=== PATIENT | female | born 1930 | race Caucasian/White ===

== ENCOUNTER 2016-12-23 11:22 | Inpatient (IN) | payer OTHER, MEDICARE ==
[~2016-12-23] VITALS: Ht 152.4 cm; Wt 81.6 kg
--- NOTE | ~2016-12-23 | HC ---
[facility] [place] [address] CONSULTATION Name: BERNARDO DUPONT Room #: 422-P [facility] IN M.R.#: [id number] Admission: 12/23/16 Attend Phys: Mychal Johnson MD Discharge: 12/27/16 Date of : 29 Report #: [id number] THIS REPORT FOR: //name// CC: Odilon Johnson DATE OF CONSULT: 12/26/2016. HISTORY OF PRESENT ILLNESS: The patient is an 86-year-old white female with history of hyperlipidemia, chronic pain syndrome on Dilaudid as an outpatient, premorbid power wheelchair user who fell from her wheelchair onto her chest. She had severe pain and workup revealed a nondisplaced sternal fracture. Orthopedics has seen her and she has been handled nonsurgically. 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 She sleeps in a lift chair. The patient has also been noted to have some acute renal insufficiency, warranting IV normal saline as she had some concurrent diarrhea for 3 days upon admission. We are seeing her in rehabilitation medicine consultation. PAST MEDICAL HISTORY: Includes the severe osteoarthritis, left lower extremity and left shoulder with nonambulatory status. She has history of hypertension, gastroesophageal reflux disease, asthma, hyperlipidemia, diverticulitis , right hip replacement, left knee replacement, spinal injections. PAST SURGICAL HISTORY: Appendectomy, hysterectomy, bilateral cataracts. HABITS: No history of tobacco or alcohol abuse. SOCIAL HISTORY: As noted above. Lives with a female significant other, ramp into the house, lift chair to commode, was on home O2, power wheelchair as noted. REVIEW OF SYSTEMS: The main complaint is pain in her sternum, which she notes with sitting up in a bedside chair. She indicates she is in significant agony with continued sitting in the bedside chair and wants to get back in bed. She has sternal complaints along with her ongoing left hip and lower extremity and left shoulder complaints which are premorbid. PHYSICAL EXAMINATION: GENERAL: An 86-year-old obese white female who does not like sitting up in the bedside chair. VITAL SIGNS: Her last recorded temperature is 98.3, pulse 78, respirations 18, blood pressure 154/93. Nasal prong O2 is in place. HEENT: Facies are symmetric. EXTREMITIES: She has decreased end range movement of her upper extremities and has discomfort with attempted movement. She complains of sternal pain and pain [facility] [address] [place] [address] CONSULTATION Name: BERNARDO DUPONT Room #: 422-P [facility] IN [facility].#: [id number] Admission: 12/23/16 Attend Phys: Mychal Johnson MD Discharge: 12/27/16 Date of : 29 Report #: [id number] involving her left upper and left lower extremity and appears rather anxious and frustrated. In her lower extremities, she had strength probably at least a grade 3+/5. No focal calf swelling. The nurse has been contacted to get her back into bed. She does moan with limited movement. The most she has done the sitting at the edge of the bed for 30-45 minutes. Supine to scoot, transfers have been max assist of 2. IMPRESSION: An 86-year-old white female with the following problems: 1. Nondisplaced sternal fracture. 2. Functional paraplegia. 3. Acute renal insufficiency. 4. Recent diarrhea. 5. Chronic pain premorbidly was on Dilaudid as an outpatient. 6. Severe osteoarthritis, left lower extremity and left shoulder. PLAN: The patient does not have the tolerance for an acute in-hospital 5 [place] rehabilitation stay. She also does not meet medical necessity criteria. We would recommend a therapy program such as would be available at a shelter facility. This will be discussed with case management. Thank you for asking us to assist in this patient's care. <ELECTRONICALLY SIGNED> By: Martin Gill MD 12/30/16 1518 0900 1056 Martin Gill MD /nt
--- NOTE | ~2016-12-23 | EKG ---
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: MELISSA : 1930 Requested By: Margaux Hilton Order Number: [id number] MD: Rj Negrete Measurements Intervals [place] Rate: 92 P: 46 SD: 158 QRS: 37 QRSD: 83 T: 48 QT: 348 QTc: 431 Interpretive Statements Sinus rhythm Low voltage, precordial leads Compared to ECG 01/20/2016 19:05:10 Low QRS voltage now present Ventricular premature complex(es) no longer present Electronically Signed On 12-23-2016 16:10:29 CDT by Rj Negrete [email or web address] <ELECTRONICALLY SIGNED> By: Rj Negrete MD 12/23/16 1610 1145 1145 Rj Negrete MD /EPI
--- NOTE | ~2016-12-23 | HC ---
[facility] [place] [address] CONSULTATION Name: BERNARDO DUPONT Room #: 422-P ADM IN M.R.#: [id number] Admission: 12/23/16 Attend Phys: Mychal Johnosn MD Discharge: Date of : 29 Report #: [id number] THIS REPORT FOR: //name// CC: Odilon Wagoner DATE OF SERVICE: 12/23/2016 CHIEF COMPLAINT: Sternal fracture. HISTORY OF PRESENT ILLNESS: This 86-year-old female with functional paraplegia is wheelchair bound. She also has chronic pain and has been using Dilaudid on a p.r.n. basis at home for some time. She fell 2 days ago from her wheelchair, landing awkwardly on the armrest of another chair causing an anterior chest injury. She was admitted for severe pain. X-rays and CT scan of the chest reveal evidence of a nondisplaced fracture involving the sternum. She apparently has no other significant injuries. At the time of my evaluation, she is resting flat in bed and seems reasonably comfortable when she is lying still; however, she complains of rather severe pain with any manipulation of the anterior chest or with deep breathing or with any movements in trying to sit up in bed. She denies any other areas of discomfort noting no change in her chronic symptoms with regard to the neck, mid back, low back or extremities. Objectively, the sternum is obviously uncomfortable to palpation; however, there is no significant bruising or swelling. There is no obvious deformity nor crepitus. She is obviously uncomfortable deep breathing, but does not seem to have significant shortness of breath. The imaging reveals a minimal nondisplaced fracture of the sternum and no evidence of deformity or disruption or instability, although this will be quite uncomfortable for this patient, I do not think there is anything I have to offer her in terms of stabilization or more acute pain management. I think ongoing medical management and activity moderation with a lot of assistance is probably the best approach. Her pain management may be difficult as she has been on chronic narcotic medications, which may make her more tolerant and make pain control more resistant nevertheless, I feel ongoing conservative management is the most reasonable option. I do not think local injections nor any other invasive pain management techniques would probably be helpful, but certainly a consultation with the pain management physicians might be an option. At this point, my personal opinion is oral pain medications be will the best approach. I suppose she might benefit from a trial of a topical lidocaine patch, although I am not terribly optimistic that this will result in deepen up penetration to help with the sternal fracture pain. I have explained all this to the patient and she seems reassured that there is not a more significant problem and this will not require any aggressive or surgical measures. I am happy to follow [address] [place] [address] CONSULTATION Name: BERNARDO DUPONT MAYANK Room #: 422-P [facility] IN M.R.#: [id number] Admission: 12/23/16 Attend Phys: Mychal Johnson MD Discharge: Date of : 29 Report #: [id number] along with you, but would not anticipate much more than conservative medical management. <ELECTRONICALLY SIGNED> By: Martin Salguero MD 12/25/16 1027 1737 0428 Martin Salguero MD /nt
[~2016-12-23 11:22] MED LIST: ACCUPRIL; ACIDOPHILUS CA1 EAC1 PO; ACIDOPHILUS LACT1 GM PO; ACIDOPHILUS1 EAC3 PO; ACIDOPHILUS1 EACH PO; ADULT LOW DOSE81 MG PO; ADVIL100 M1 PO; ALBUTEROL2.5 MG/0.1; AMLODIPINE BESYL5 MG PO; APAP500; APAP650 PO; ASPIR 8181 M1 PO; BUTRANS1 EAC1 TD; CELEXA10 MG PO; CELEXA20 MG PO; CENTRUM SILVER1 EAC4 PO; CHOLESTYRAMINE P4 GM PO; CIPRO500 MG PO; COLACE100 MG PO; COUMADIN 2 MG TA2 M1 PO; COZAAR 50 MG TA50 M1 PO; COZAAR 50 MG TA50 M2 PO; COZAAR100 MG PO; DARVOCET OR; DICLOFENAC PO; DILAUDID 2 MG TA2 MG PO; DILAUDID2 MG PO; FLAGYL500 MG PO; FOSAMAX 70 MG T70 M1 PO; GLUCOSAMINE 1,1 EACH PO; GLUCOSAMINE CH1 EAC1 PO; K-DUR10 MEQ PO; LANSOPRAZOLE30 MG PO; MAGNESIUM OXIDE PO; MAGNESIUM250 MG PO; MAXZIDE-25 MG1 EACH PO; MOBIC15 MG PO; MOBIC7.5 MG PO; MUCINEX TA600 MG/TA1 PO; MULTIPLE VITAM1 EAC3 PO; MULTIVITAMINS PO; NEURONTIN 300300 M1 PO; NIFEDIPINE ER60 M1 PO; NORCO 5-325 TA1 EACH PO; NORVASC2.5 MG PO; NORVASC5 MG PO; OMEPRAZOLE 20 M20 M1 PO; OMEPRAZOLE20 M2 PO; ONDANSETRON HCL4 M2 PO; OSTEO BIFLEX OR; PERCOCET 5-3251 EACH PO; POTASSIUM20 PO; PREVALITE PACKE1 PKT PO; PRILOSEC 20 MG20 MG PO; PROAIR HFA8.5 GM INH; PROAIR RESPICL90 MCG IH; QUINAPRIL 20 MG20 M1 PO; REMERON 30 MG T30 M1 PO; REMERON15 MG PO; RESTORIL15 MG PO; SEROQUEL 25 MG25 M1 PO; SIMVASTATIN40 MG PO; SYMBICORT160 MCG/4. INH; SYMBICORT80 MCG/4.1 INH; TEMOVATE15 GM; TEMOVATE15 GM TP; TRAZODONE 50 MG50 MG OR; TRIAMTERENE-HC1 EAC3 PO; TYLENOL325 MG PO; VITAMIN D 5050000 I1 PO; VOLTAREN GEL 1100 G1 TOP; VOLTAREN GEL 1100 G2 TOP; VOLTAREN100 GM; ZOCOR40 MG PO; ZOFRAN ODT4 MG PO; ZOFRAN ODT4 MG SUBLING
[2016-12-23 12:01] LABS: HEMATOCRIT 36.3 % (37.0-47.0); HEMOGLOBIN 11.8 gm/dL (12.0-15.0); MCH 30.1 pg (26.0-34.0); MCHC 32.6 g/dL (28.0-37.0); MCV 92.3 fL (80.0-100.0); PLATELET COUNT 292 thou/uL (150-400); RBC 3.93 mil/uL (4.20-5.00); RDW 14.4 % (10.5-14.5)
[2016-12-23 12:03] LABS: MANUAL DIFF YES
[2016-12-23 12:10] LABS: CALCIUM 9.4 mg/dL (8.5-10.1); CREATININE 1.9 mg/dL (0.6-1.0); POTASSIUM 4.2 mmol/L (3.5-5.1)
[2016-12-23 12:27] LABS: ABSOLUTE NEUTROPHILS 11.8 thou/uL (1.4-8.2); PLATELET ESTIMATE NORMAL; TOTAL CELL COUNT 100
[2016-12-23 14:45] VITALS: BP 118/38
[2016-12-23 15:50] VITALS: BP 131/65
[2016-12-23 20:00] VITALS: BP 127/56
[2016-12-24 05:10] LABS: HEMATOCRIT 30.2 % (37.0-47.0); MCH 30.4 pg (26.0-34.0); MCHC 33.2 g/dL (28.0-37.0); MCV 91.5 fL (80.0-100.0); RBC 3.3 mil/uL (4.20-5.00); RDW 14.4 % (10.5-14.5); WBC 10.8 thou/uL (4.0-11.0)
[2016-12-24 05:23] LABS: CALCIUM 8.3 mg/dL (8.5-10.1); CREATININE 1.6 mg/dL (0.6-1.0)
[2016-12-24 05:24] LABS: POTASSIUM 3.1 mmol/L (3.5-5.1)
[2016-12-24 07:44] VITALS: BP 138/64
[2016-12-24 14:46] LABS: URINE BILIRUBIN NEGATIVE (Negative); URINE BLOOD 3+ (Negative); URINE COLOR YELLOW; URINE GLUCOSE-RANDOM* NEGATIVE (Negative); URINE KETONES NEGATIVE (Negative); URINE LEUKOCYTES-REFLEX TRACE (Negative); URINE PROTEIN (DIPSTICK) TRACE (Negative); URINE SPECIFIC GRAVITY 1.025 (1.003-1.035); URINE UROBILINOGEN 0.2 E.U./dl (0.2-1.0)
[2016-12-24 14:55] LABS: CRYSTALS None Seen /LPF (None Seen); FINE GRANULAR CASTS 4-10 Moderate /LPF (None Seen); SQUAMOUS >10 Many /LPF (0-3); URINE WBC-REFLEX 6-15 Few /HPF (0-5)
[2016-12-24 14:56] LABS: URINE RBC 3-10 Few /HPF (0-2)
[2016-12-24 20:00] VITALS: BP 124/53
[2016-12-25 04:00] VITALS: BP 144/68
[2016-12-25 07:32] VITALS: BP 163/62
[2016-12-25 16:43] VITALS: BP 149/77
[2016-12-25 20:00] VITALS: BP 146/62
[2016-12-26 04:06] LABS: HEMOGLOBIN 10.4 gm/dL (12.0-15.0)
[2016-12-26 04:08] LABS: HEMATOCRIT 30.8 % (37.0-47.0); MCH 30.7 pg (26.0-34.0); MCHC 33.7 g/dL (28.0-37.0); MCV 91.1 fL (80.0-100.0); RBC 3.38 mil/uL (4.20-5.00); RDW 14.2 % (10.5-14.5); WBC 12.6 thou/uL (4.0-11.0)
[2016-12-26 04:12] VITALS: BP 133/63
[2016-12-26 04:18] LABS: CALCIUM 8.3 mg/dL (8.5-10.1); CREATININE 0.9 mg/dL (0.6-1.0); POTASSIUM 3.4 mmol/L (3.5-5.1)
[2016-12-26 08:00] VITALS: BP 154/93
[2016-12-26 16:00] VITALS: BP 127/85
[2016-12-26 20:00] VITALS: BP 145/70
[2016-12-27 04:00] VITALS: BP 155/82
[2016-12-27 07:37] VITALS: BP 185/87
[2016-12-27 07:52] VITALS: BP 185/87
[2016-12-27] MEDS ORDERED: KEFLEX500 MG PO (09:52)
[2016-12-27] MEDS ORDERED: FENTANYL 0.50 MCG/ML IV PUSH (09:53)
[2016-12-27] MEDS ORDERED: FENTANYL PA50 MCG/HR TRANSDERM (09:58)
[2016-12-27 10:12] VITALS: BP 168/77
[2016-12-27] MEDS ORDERED: DILAUDID2 MG PO (12:45)
== END 2016-12-27 14:18 | DRG 871 ==
LOC: ER 11:22 → 4E 14:22 → EROBS 14:22 → 4E 15:22
PROVIDERS: Emergency Medicine; Hospitalist
DX: A41.9 Sepsis, unspecified organism (principal); N17.0 Acute kidney failure with tubular necrosis; S22.20XA Unspecified fracture of sternum, initial encounter for closed fracture; N39.0 Urinary tract infection, site not specified; K52.9 Noninfective gastroenteritis and colitis, unspecified; I10 Essential (primary) hypertension; K21.9 Gastro-esophageal reflux disease without esophagitis; E78.5 Hyperlipidemia, unspecified; J45.909 Unspecified asthma, uncomplicated; K57.90 Diverticulosis of intestine, part unspecified, without perforation or abscess without bleeding; Z96.641 Presence of right artificial hip joint; Z96.652 Presence of left artificial knee joint; G89.29 Other chronic pain; M19.90 Unspecified osteoarthritis, unspecified site; F44.4 Conversion disorder with motor symptom or deficit; D72.829 Elevated white blood cell count, unspecified; E87.6 Hypokalemia; W18.39XA Other fall on same level, initial encounter; Y93.89 Activity, other specified; Y92.89 Other specified places as the place of occurrence of the external cause; Y99.8 Other external cause status; Z90.49 Acquired absence of other specified parts of digestive tract; Z97.10 Presence of artificial limb (complete) (partial), unspecified; Z98.42 Cataract extraction status, left eye; Z98.41 Cataract extraction status, right eye; Z88.6 Allergy status to analgesic agent; Z88.1 Allergy status to other antibiotic agents; Z88.8 Allergy status to other drugs, medicaments and biological substances; Z79.82 Long term (current) use of aspirin; Z79.899 Other long term (current) drug therapy
CPT/HCPCS: 10183

== ENCOUNTER 2017-05-03 18:52 | Inpatient (IN) | payer OTHER, MEDICARE ==
[2017-05-03] VITALS (10 sets, daily range): BP systolic 146–196; BP diastolic 74–129
[~2017-05-03] VITALS: Ht 152.4 cm; Wt 73.1 kg
--- NOTE | ~2017-05-03 | 2DMMODE ---
[facility] [address] [place] [address] 2 D/M-MODE ECHOCARDIOGRAM Name: BERNARDO DUPONT [facility] Room #: 352-P ADM IN M.R.#: [id number] Admission: 05/03/17 Attend Phys: Maxx Wagoner, Discharge: Date of : 29 Date of Service: 05/08/17 1546 Report #: [id number] THIS REPORT FOR: //name// APPROVED REPORT Study performed: 05/08/2017 14:28:43 EXAM: Comprehensive 2D, Doppler, and color-flow Echocardiogram Patient Location: Bedside Room #: [facility] Status: routine BSA: 1.70 HR: 105 bpm BP: 145/73 mmHg Rhythm: Tachycardia/Arrhythmia Other Information Study Quality: Fair Technically limited study due to no patient cooperation or mobility. Indications Arrhythmia 2D Dimensions RVDd: 34.77 mm LVEF(%): 51.31 (>50%) IVSd: 10.91 (7-11mm) LVOT Diam: 20.34 (18-24mm) LVDd: 40.07 mm PWd: 11.43 (7-11mm) Ascending Ao: 34.29 (22-36mm) LVDs: 29.73 (25-40mm) Aortic Root: 33.39 mm Jeffery's LVEF: 51.31 % Volumes Left Atrial Volume (Systole) Single Plane 4CH: 36.23 mL Single Plane 2CH: 50.17 mL LA ESV Index: 28.00 mL/m2 Aortic Valve AoV Peak Abrahan.: 1.89 m/s AO Peak Gr.: 14.33 mmHg LVOT Max P.76 mmHg LVOT Max V: 1.30 m/s BEATRICE Vmax: 2.23 cm2 Mitral Valve [facility] [address] [place] [address] 2 D/M-MODE ECHOCARDIOGRAM Name: BERNARDO DUPONT [facility] Room #: 352-[facility] IN ..#: [id number] Admission: 05/03/17 Attend Phys: Maxx Wagoner, Discharge: Date of : 29 Date of Service: 05/08/17 1546 Report #: [id number] E/A Ratio: 0.7 MV Decel. Time: 306.32 ms MV E Max Abrahan.: 0.71 m/s MV A Abrahan.: 1.08 m/s MV PHT: 88.83 ms IVRT: 83.04 ms Pulmonary Valve PV Peak Abrahan.: 1.14 m/s PV Peak Gr.: 5.17 mmHg Tricuspid Valve TR Peak Abrahan.: 2.73 m/s RAP Estimate: 5.00 mmHg TR Peak Gr.: 29.73 mmHg PA Pressure: 35.00 mmHg Left Ventricle The left ventricle is normal size. Regional wall motion is not well visualized but grossly normal. There is normal left ventricular wall thickness. Left ventricular systolic function is normal. LVEF is 55%. Mild diastolic dysfunction is present (impaired relaxation pattern). Right Ventricle The right ventricle is normal size. The right ventricular systolic function is normal. Atria The left atrium size is normal. The right atrium size is normal. Aortic Valve Aortic valve is mildly calcified, trileaflet. No aortic regurgitation is present. There is no aortic valvular stenosis. Mitral Valve Mild mitral annular calcification. Trace mitral regurgitation. No evidence of mitral valve stenosis. Tricuspid Valve The tricuspid valve is normal in structure. Trace tricuspid regurgitation. Estimated PAP is 30mmHg. Pulmonic Valve Pulmonic valve is not well visualized. [employer] [facility] [address] [place] [address] 2 D/M-MODE ECHOCARDIOGRAM Name: KIAHMARINAJARODGABE [facility] Room #: 352-P [facility] IN .R.#: [id number] Admission: 05/03/17 Attend Phys: Maxx Wagoner, Discharge: Date of : 29 Date of Service: 05/08/17 1546 Report #: [id number] The aortic root is normal in size. The ascending aorta is normal in size. IVC is normal in size and collapses >50% with inspiration. Pericardium Small pericardial effusion. <Conclusion> Left ventricular systolic function is normal. Regional wall motion is not well visualized but grossly normal. LVEF 55%. Grade I diastolic dysfunction Aortic valve is mildly calcified, trileaflet. No aortic valvular stenosis or insufficiency. Mild mitral annular calcification. Trace mitral regurgitation. Pulmonary artery pressure of 30mmHg Small pericardial effusion. <ELECTRONICALLY SIGNED> By: Laurent Rashid MD, [facility] 05/08/17 1546 1546 1546 Laurent Rashid MD, FACC /INF
--- NOTE | ~2017-05-03 | EKG ---
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
--- NOTE | ~2017-05-03 | EKG ---
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: BLADE : 1930 Requested By: Rj Negrete Order Number: [id number] MD: Rj Negrete Measurements Intervals [place] Rate: 86 P: 46 [place]: 135 QRS: 30 QRSD: 56 T: 39 QT: 368 QTc: 440 Interpretive Statements Sinus rhythm Low voltage, precordial leads Compared to ECG 05/09/2017 08:42:46 Low QRS voltage now present Atrial premature complex(es) no longer present T-wave abnormality no longer present Electronically Signed On 05-09-2017 16:18:38 CDT by Rj Negrete [email or web address] <ELECTRONICALLY SIGNED> By: Rj Negrete MD 05/09/17 1618 1500 1500 Rj Negrete MD /EPI
--- NOTE | ~2017-05-03 | HC ---
[facility] [place] [address] CONSULTATION Name: BERNARDO DUPONT Room #: 352-P [facility] IN M.R.#: [id number] Admission: 05/03/17 Attend Phys: Maxx Wagoner DO Discharge: 05/10/17 Date of : 29 Report #: [id number] THIS REPORT FOR: //name// CC: Odilon Belleane Yovany DATE OF SERVICE: 05/06/2017 HISTORY OF PRESENT ILLNESS: The patient is an 86-year-old white female who was admitted with seizure and acute mental status changes. She was noted to have acute respiratory failure, which has improved. There is a question of aspiration pneumonia with her history of COPD. She has been placed on Keppra by Neurology. She had severe metabolic and respiratory acidosis. Her presentation was thought to be compounded by opiates. She was able to be extubated, has improved, but still has evidence of encephalopathy. We are seeing her in rehabilitation medicine consultation. PAST MEDICAL HISTORY: Severe arthritis, left lower extremity and left shoulder with essentially nonambulatory status. History of hypertension, GERD, asthma, hyperlipidemia, diverticulitis, right hip replacement, left knee replacement, spinal injections. She has had a prior sternal fracture and then was just over at [facility] this last summer. PAST SURGICAL HISTORY: Includes appendectomy, hysterectomy, bilateral cataracts. HABITS: No history of tobacco or alcohol abuse. SOCIAL HISTORY: Lives with a female significant other, ramp into the house, lift chair to commode, was on home O2, power wheelchair. This significant other indicated that after the patient returned home from [facility], she was able to stand from her lift chair [facility] The patient does not sleep in bed. The patient has been utilizing a wheelchair as she has not been able to ambulate. This significant other noted that utmost the patient may be able to take a few steps at [facility]. She has been severely limited by her arthritis, left lower extremity as well as left shoulder. REVIEW OF SYSTEMS: Did not offer any current complaints of chest pain, shortness of breath or abdominal discomfort. She has the pain involving the left shoulder and the left hip and leg. This is all premorbid. PHYSICAL EXAMINATION: GENERAL: An 86-year-old obese white female in no obvious distress. VITAL SIGNS: Last recorded temperature 99.2, pulse 106, respirations 22, and blood pressure 178/103. [address] [address] CONSULTATION Name: BERNARDO DUPONT Room #: 352-P [facility] IN M.R.#: [id number] Admission: 05/03/17 Attend Phys: Maxx Wagoner DO Discharge: 05/10/17 Date of : 29 Report #: [id number] NEUROLOGIC: She is alert, hard of hearing. She thought she was at [facility]. She would follow basic 1 step commands, but with definite delay. EXTREMITIES: Functional range of motion of the right upper extremity, strength is grade 3+/5. Left upper extremity, she favors moving that arm proximally and strength is a grade 3-3+/5. Lower extremities, I did not actually check range of motion, but strength appeared to be probably a grade 3+/5 to 3/5. There is no focal calf swelling. No significant distal lower extremity edema. IMPRESSION: An 86-year-old white female with the following problem list: 1. Encephalopathy. 2. Acute mental status changes with seizure. 3. Acute respiratory failure, which has resolved. 4. Premorbid wheelchair-bound/lift chair with severe arthritis, especially left lower extremity and left upper extremity. 5. Left temporal ulcer. 6. Exogenous obesity. 7. History of asthma. PLAN: Therapy evaluations are underway. I am uncertain if she has the tolerance for an acute in-hospital inpatient rehabilitation stay, but we will follow along with you. <ELECTRONICALLY SIGNED> By: Martin Gill MD 05/12/17 1105 1427 2319 Martin Gill MD /[facility]
--- NOTE | ~2017-05-03 | EKG ---
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: BLADE : 1930 Requested By: Rj Negrete Order Number: [id number] MD: Rj Negrete Measurements Intervals [place] Rate: 82 P: 33 [place]: 147 QRS: 29 QRSD: 69 T: 23 QT: 372 QTc: 435 Interpretive Statements Sinus rhythm Atrial premature complex Borderline T wave abnormalities Compared to ECG 05/08/2017 09:32:03 Atrial premature complex(es) now present Atrial fibrillation no longer present T-wave abnormality still present Electronically Signed On 05-09-2017 8:51:55 CDT by Rj Negrete [email or web address] <ELECTRONICALLY SIGNED> By: Rj Negrete MD 05/09/17 0851 1 1 Rj Negrete MD /EPI
--- NOTE | ~2017-05-03 | EEG ---
[place] [address] ELECTROENCEPHALOGRAM Name: BERNARDO DUPONT Room #: 352-P ADM IN M.R.#: [id number] Admission: 05/03/17 Attend Phys: Maxx Wagoner DO Discharge: Date of : 29 Report #: [id number] THIS REPORT FOR: //name// CC: Odilon Wagoner Sheron Pedroza DATE OF SERVICE: 05/04/2017 DATE OF SERVICE: 05/04/2017 This patient is being evaluated for the possibility of seizures and altered mental status. EEG is difficult to interpret because it is intermixed with a lot of muscle artifact and it is a very low voltage. The best I can tell, the background activity in this patient's EEG appeared to be about 6-7 Hz and 10 microvolts. EEG is slow on other occasions and the patient may be asleep that time, but it is difficult to tell because of her mentation. Photic stimulation is unremarkable. No active epileptiform activity was noticed during this record. IMPRESSION: This is an abnormal EEG because it is very low voltage and poorly formed. That typically occurs with encephalopathy, but can occur with multiple other etiologies and is nonspecific. No active epileptiform activity was noticed. By: 0852 0929 Femi Bentley MD /nt
--- NOTE | ~2017-05-03 | EKG ---
[address] [address] ELECTROCARDIOGRAM REPORT Name: BERNARDO DUPONT Room #: 352- ADM IN M.R.#: [id number] Admission: 05/03/17 Attend Phys: Maxx Wagoner DO Discharge: Date of : 29 Report #: [id number] THIS REPORT FOR: //name// [facility] Test Date: 2017-05-08 Test Time: 09:32:03 Pat Name: BERNARDO DUPONT Department: Room: 352 Gender: F Research Assistant: Christiana YAO : 1930 Requested By: Ramy Du Order Number: [id number] MD: Rj Negrete Measurements Intervals [place] Rate: 140 P: 44 [place]: 117 QRS: 33 QRSD: 77 T: 44 QT: 311 QTc: 475 Interpretive Statements Atrial fibrillation Borderline T wave abnormalities Compared to ECG 05/03/2017 19:59:18 T-wave abnormality now present Electronically Signed On 05-08-2017 10:55:02 CDT by Rj Negrete [email or web address] <ELECTRONICALLY SIGNED> By: Rj Negrete MD 05/08/17 1055 0932 0932 Rj Negrete MD /[facility]E
--- NOTE | ~2017-05-03 | HC ---
[facility] [place] [address] CONSULTATION Name: BERNARDO DUPONT Room #: 242-P ADM IN M.R.#: [id number] Admission: 05/03/17 Attend Phys: Maxx Wagoner DO Discharge: Date of : 29 Report #: [id number] THIS REPORT FOR: //name// CC: Odilon Pedroza DATE OF SERVICE: 05/03/2017 REFERRING PROVIDER: ANTHONY Alfaro REASON FOR CONSULTATION: Respiratory failure, possible sepsis and hypercapnia. CHIEF COMPLAINT: Altered mental status. HISTORY OF PRESENT ILLNESS: Our group was asked to see this patient in consultation while hospitalized at [facility], called by the ICU nursing and seen this evening. The patient is an 86-year-old woman unable to give any history, currently on BiPAP. History was taken from discussion with healthcare providers and review of records. She is an 86 without any past pulmonary history or significant neurologic history available, history of hypertension, presented to the Emergency Department, had been feeling sick for a few days, may have been at [facility] Emergency Department or seen her primary care provider until she had some renal dysfunction. She started having headache as well as some altered mental status, may have had what sounds like a witnessed seizure in the Emergency Department and treated with lorazepam and Keppra. In the Emergency Department, the patient had severe metabolic and respiratory acidosis with a pH of 6.8, subsequently was placed on a nonrebreather mask and transferred up to the ICU for further care. The patient currently is unresponsive even to deep stimuli including deep painful, nail bed stimulation and sternal rub. According to the power of traffic law attorney, significant other, the patient is a do not resuscitate. ALLERGIES: INCLUDE CEFUROXIME, ADVAIR, MORPHINE, CODEINE, HYDROCODONE, TRAMADOL AND TRAZODONE. PAST MEDICAL HISTORY: 1. Severe osteoarthritis. 2. Hypertension. 3. Gastroesophageal reflux disease. 4. Asthma, severity unquantified. 5. Hyperlipidemia. PAST SURGICAL HISTORY: Includes appendectomy, hysterectomy and cataracts. [facility] [address] [place] [address] CONSULTATION Name: [facility]ARIN[facility]O [facility] Room #: 242-P [facility] IN M.R.#: [id number] Admission: 05/03/17 Attend Phys: Maxx Wagoner DO Discharge: Date of : 29 Report #: [id number] SOCIAL HISTORY: Unobtainable due to current status. FAMILY HISTORY: Unobtainable due to her current status. REVIEW OF SYSTEMS: Otherwise, unobtainable due to her current status except as described in the HPI. PHYSICAL EXAMINATION: VITAL SIGNS: Afebrile with a temperature of 98.1, pulse 120 and regular, respiratory rate 11 and blood pressure 187/95. GENERAL: This is a debilitated elderly woman and unresponsive. EENT: Reveals diminished pupils at 3 mm with minimal responsiveness to light and equal. NECK: Supple, no lymphadenopathy. Scalp revealed a scalp lesion over the left scalp covered with bandage. LUNGS: Diminished, but clear, some intermittent respirations are noted consistent with periodic breathing. CARDIOVASCULAR: Heart was tachycardic, but regular. Could not appreciate any murmurs. ABDOMEN: Obese, soft, nontender and no masses noted. Bowel sounds diminished, but present. EXTREMITIES: Revealed 1+ edema. NEUROLOGIC: The patient was unresponsive even deep painful stimuli and as mentioned above some periodic breathing noted with short periods of apnea. LABORATORY DATA: Sodium 142, potassium 3.1, chloride 102, bicarbonate 15, BUN 10, creatinine 1.3 and glucose 168. Liver enzymes are normal. Calcium 10.2. Lactic acid was 3.3 on repeat. Initial lactate was 13. White blood cell count was 18,000, hemoglobin 14, hematocrit 44 and platelet count 428 without any band forms noted. Initial arterial blood gas on nonrebreather mask, unclear I suspect this is after initial seizure revealed pH 6.88, pCO2 106, pO2 221, bicarbonate of 19 and lactate was 6.23. IMPRESSION: 1. Altered mental status. Suspect early cerebrovascular accident versus seizure from some other etiologies. 2. Witnessed seizure also suggested by acute elevated lactate that is quickly resolving per Neurology. 3. Hypercapnic and hypoxemic respiratory failure, likely due to altered mental status and diminished respiratory efforts and possible periods of apneas 4. History of asthma by medical records. 5. Hypertension, currently on labetalol to control blood pressure although try and maintain between 140 and 160 systolic given possible recent CVA although CT of the head is negative. SUGGESTIONS: [address] [address] CONSULTATION Name: BERNARDO DUPONT Room #: 242-P ADM IN M.R.#: [id number] Admission: 05/03/17 Attend Phys: Maxx Wagoner, Discharge: Date of : 29 Report #: [id number] 1. Neurology consultation noted. 2. ICU care. 3. DNR noted. 4. We will change noninvasive positive pressure ventilation support to AVAPS mode. Maintain a target minute volume of roughly 8 to 12 liters. 5. Follow up arterial blood gas. 6. Agree with current antibiotics. 7. If remained stable in the a.m., plan is for EEG and MRI noted. Total critical care time 45 minutes, not including procedures to this point. By: 0040 [id number] Francisco Rodriguez MD /everett
[~2017-05-03 18:52] MED LIST changes: +FENTANYL 0.50 MCG/ML IV PUSH; +FENTANYL PA50 MCG/HR TRANSDERM; +KEFLEX500 MG PO
[2017-05-03 19:33] LABS: ABSOLUTE NEUTROPHILS 8.7 thou/uL (1.4-8.2); BASOPHILS 0.9 % (0.0-2.0); EOSINOPHILS 0.5 % (0.0-3.0); HEMATOCRIT 44.2 % (37.0-47.0); HEMOGLOBIN 14.1 gm/dL (12.0-15.0); MCV 87.7 fL (80.0-100.0); PLATELET COUNT 428 thou/uL (150-400); POLYS 47.6 % (36.0-66.0); RBC 5.04 mil/uL (4.20-5.00); RDW 18.1 % (10.5-14.5); WBC 18.3 thou/uL (4.0-11.0)
[2017-05-03 19:35] LABS: MANUAL DIFF NO
[2017-05-03 19:52] LABS: PROTIME 10.5 Seconds (9.3-11.4)
[2017-05-03 20:57] LABS: ABG SAMPLE TYPE ARTERIAL; BE(vivo) -15.7 mmol/L (-2 to +3); HCO3 19.4 mmol/L (22.0-26.0); O2(CT) 18.8 mL/dL (15.0-23.0); PO2 221.5 mmHg (80.0-100.0); sO2 98.6 % (92.0-98.0); tCO2 22.7 mmol/L (24.0-30.0)
[2017-05-03 20:58] LABS: LACTATE 6.23 mmol/L (0.5-2.0); PCO2 106.2 mmHg (35.0-45.0)
[2017-05-03 20:59] LABS: FIO2 100 %; STICK SITE L.RADIAL
[2017-05-03] MEDS ORDERED: CENTRUM SILVER1 EAC4 PO ×2 (21:15→21:16)
[2017-05-03 21:18] LABS: ANION GAP 25 mmol/L (7-16); BUN 10 mg/dL (7-18); CALCIUM 10.2 mg/dL (8.5-10.1); CHLORIDE 102 mmol/L (98-107); CO2 15 mmol/L (21-32); CREATININE 1.3 mg/dL (0.6-1.0); GLUCOSE 168 mg/dL (74-106); POTASSIUM 3.1 mmol/L (3.5-5.1); SODIUM 142 mmol/L (136-145)
[2017-05-03] MEDS ORDERED: SYMBICORT160 MCG/4. INH (21:19)
[2017-05-03] MEDS ORDERED: VITAMIN D50000 UNIT PO (21:21)
[2017-05-03] MEDS ORDERED: VOLTAREN GEL 1100 G2 TOP (21:21)
[2017-05-03 21:26] LABS: ALBUMIN 4.1 g/dL (3.4-5.0); ALKALINE PHOSPHATASE 104 U/L (46-116); SGOT 25 U/L (15-37); SGPT 14 U/L (30-65); TOTAL BILIRUBIN 0.6 mg/dL (<0.1-1.0); TOTAL PROTEIN 8.2 g/dL (6.4-8.2); TROPONIN-I < 0.04 ng/mL (<0.04-0.07)
[2017-05-03 21:55] LABS: URINE BILIRUBIN NEGATIVE (Negative); URINE BLOOD 1+ (Negative); URINE COLOR YELLOW; URINE GLUCOSE-RANDOM* 1+ (Negative); URINE KETONES NEGATIVE (Negative); URINE LEUKOCYTES-REFLEX NEGATIVE (Negative); URINE PROTEIN (DIPSTICK) 2+ (Negative); URINE SPECIFIC GRAVITY >= 1.030 (1.003-1.035); URINE UROBILINOGEN 0.2 E.U./dl (0.2-1.0)
[2017-05-03 22:05] LABS: HYALINE CASTS 0-3 Few /LPF (None Seen)
[2017-05-03 22:06] LABS: SQUAMOUS None Seen /LPF (0-3); URINE RBC 0-2 Rare /HPF (0-2); URINE WBC-REFLEX 0-5 Rare /HPF (0-5)
[2017-05-03 22:07] LABS: AMORPHOUS URATES Few /LPF (None Seen)
[2017-05-03 22:17] LABS: AMP/METHAMP Negative (Negative); BARBITURATES Negative (Negative); BENZODIAZEPINES Negative (Negative); COCAINE Negative (Negative); METHADONE Negative (Negative); OPIATES POSITIVE (Negative); PCP Negative (Negative); THC Negative (Negative)
[2017-05-04] VITALS (16 sets, daily range): BP systolic 126–190; BP diastolic 70–111
[2017-05-04 02:11] LABS: ABG SAMPLE TYPE ARTERIAL; BE(vivo) -4.7 mmol/L (-2 to +3); HCO3 25.7 mmol/L (22.0-26.0); LACTATE 2.16 mmol/L (0.5-2.0); O2(CT) 19.4 mL/dL (15.0-23.0); O2Hb 98.3 % (92.0-98.0); PO2 210.9 mmHg (80.0-100.0); sO2 99.1 % (92.0-98.0); tCO2 27.9 mmol/L (24.0-30.0)
[2017-05-04 02:12] LABS: PCO2 74.3 mmHg (35.0-45.0); STICK SITE RRA; TIDAL VOLUME 450 ml; pH 7.156 (7.360-7.450)
[2017-05-04 02:13] LABS: ABG COMMENT AVAPS450 MINP12MAX25
[2017-05-04 05:51] LABS: HEMATOCRIT 37.3 % (37.0-47.0); HEMOGLOBIN 12.2 gm/dL (12.0-15.0); MCH 28.2 pg (26.0-34.0); MCHC 32.6 g/dL (28.0-37.0); MCV 86.7 fL (80.0-100.0); RBC 4.31 mil/uL (4.20-5.00); RDW 18.1 % (10.5-14.5); WBC 18.2 thou/uL (4.0-11.0)
[2017-05-04 08:41] LABS: CALCIUM 8.4 mg/dL (8.5-10.1)
[2017-05-04 08:43] LABS: POTASSIUM 4.2 mmol/L (3.5-5.1)
[2017-05-04 09:43] LABS: ABG SAMPLE TYPE ARTERIAL; BE(vivo) -1.6 mmol/L (-2 to +3); HCO3 24.2 mmol/L (22.0-26.0); LACTATE 1.86 mmol/L (0.5-2.0); O2Hb 98.3 % (92.0-98.0); PO2 171.6 mmHg (80.0-100.0); pH 7.349 (7.360-7.450); sO2 99.1 % (92.0-98.0); tCO2 25.6 mmol/L (24.0-30.0)
[2017-05-04 09:44] LABS: STICK SITE R.RADIAL; TIDAL VOLUME 450 ml
[2017-05-05] VITALS (16 sets, daily range): BP systolic 155–201; BP diastolic 83–111
[2017-05-05 04:44] LABS: ABSOLUTE NEUTROPHILS 9.5 thou/uL (1.4-8.2); BASOPHILS 0.2 % (0.0-2.0); HEMATOCRIT 32.3 % (37.0-47.0); HEMOGLOBIN 10.5 gm/dL (12.0-15.0); LYMPHOCYTES 11.9 % (24.0-44.0); MCH 27.8 pg (26.0-34.0); MCHC 32.6 g/dL (28.0-37.0); MCV 85.4 fL (80.0-100.0); MONOCYTES 6.6 % (1.0-8.0); PLATELET COUNT 231 thou/uL (150-400); POLYS 81.3 % (36.0-66.0); RBC 3.78 mil/uL (4.20-5.00); RDW 17.3 % (10.5-14.5); WBC 11.7 thou/uL (4.0-11.0)
[2017-05-05 04:45] LABS: MANUAL DIFF NO
[2017-05-05 04:58] LABS: CALCIUM 8.2 mg/dL (8.5-10.1); CREATININE 0.9 mg/dL (0.6-1.0); MAGNESIUM 1.6 mg/dL (1.8-2.4); TOTAL BILIRUBIN 0.4 mg/dL (<0.1-1.0)
[2017-05-05 05:10] LABS: POTASSIUM 2.9 mmol/L (3.5-5.1)
[2017-05-05 06:06] LABS: ABG SAMPLE TYPE ARTERIAL; BE(vivo) 0.7 mmol/L (-2 to +3); HCO3 24.6 mmol/L (22.0-26.0); LACTATE 1.29 mmol/L (0.5-2.0); O2(CT) 15.8 mL/dL (15.0-23.0); O2Hb 94.2 % (92.0-98.0); PCO2 36.9 mmHg (35.0-45.0); PO2 71.4 mmHg (80.0-100.0); pH 7.442 (7.360-7.450); tCO2 25.7 mmol/L (24.0-30.0)
[2017-05-05 06:07] LABS: FIO2 21 %; STICK SITE L.RADIAL
[2017-05-05 13:15] LABS: MAGNESIUM 2.1 mg/dL (1.8-2.4); POTASSIUM 3.2 mmol/L (3.5-5.1)
[2017-05-06 03:50] VITALS: BP 175/111
[2017-05-06 04:59] LABS: CALCIUM 8.3 mg/dL (8.5-10.1); CREATININE 0.9 mg/dL (0.6-1.0)
[2017-05-06 08:36] VITALS: BP 147/92
[2017-05-06 11:32] VITALS: BP 178/103
[2017-05-06 17:06] VITALS: BP 180/92
[2017-05-06 19:48] VITALS: BP 122/77
[2017-05-06 21:48] VITALS: BP 160/84
[2017-05-07] VITALS (7 sets, daily range): BP systolic 167–204; BP diastolic 86–108
[2017-05-08 00:13] VITALS: BP 180/90
[2017-05-08 04:46] VITALS: BP 141/65
[2017-05-08 06:09] LABS: ABG SAMPLE TYPE ARTERIAL; BE(vivo) 4.1 mmol/L (-2 to +3); HCO3 27.6 mmol/L (22.0-26.0); LACTATE 0.82 mmol/L (0.5-2.0); O2(CT) 16.5 mL/dL (15.0-23.0); O2Hb 95.2 % (92.0-98.0); PCO2 37.7 mmHg (35.0-45.0); PO2 80.4 mmHg (80.0-100.0); pH 7.483 (7.360-7.450); sO2 96.6 % (92.0-98.0); tCO2 28.8 mmol/L (24.0-30.0)
[2017-05-08 06:10] LABS: STICK SITE R.RADIAL
[2017-05-08 06:23] LABS: HEMATOCRIT 37.1 % (37.0-47.0); MCH 27.7 pg (26.0-34.0); MCHC 32.4 g/dL (28.0-37.0); MCV 85.5 fL (80.0-100.0); RBC 4.34 mil/uL (4.20-5.00); RDW 18.3 % (10.5-14.5); WBC 7.8 thou/uL (4.0-11.0)
[2017-05-08 06:30] LABS: CALCIUM 8.3 mg/dL (8.5-10.1); CREATININE 0.8 mg/dL (0.6-1.0); MAGNESIUM 1.8 mg/dL (1.8-2.4); POTASSIUM 3.3 mmol/L (3.5-5.1)
[2017-05-08 07:52] VITALS: BP 135/59
[2017-05-08 11:30] VITALS: BP 145/73
[2017-05-08 15:28] VITALS: BP 127/75
[2017-05-08 19:31] VITALS: BP 170/74
[2017-05-09 02:57] VITALS: BP 157/92
[2017-05-09 08:43] VITALS: BP 149/70
[2017-05-09 12:15] VITALS: BP 157/73
[2017-05-09 16:00] VITALS: BP 178/82
[2017-05-09 19:35] VITALS: BP 156/74
[2017-05-10 04:43] VITALS: BP 170/78
[2017-05-10 08:00] VITALS: BP 162/66
[2017-05-10 11:57] VITALS: BP 152/74
[2017-05-10] MEDS ORDERED: AUGMENTIN 875-1 EACH PO (12:44)
[2017-05-10] MEDS ORDERED: METOPROLOL SUCC50 MG PO (12:45)
[2017-05-10] MEDS ORDERED: DUONEB 2.5-0.5 M3 ML INH (12:45)
[2017-05-10] MEDS ORDERED: KEPPRA 500 MG500 M1 PO (12:52)
== END 2017-05-10 15:17 | DRG 177 ==
LOC: ER 18:52 → EROBS 19:37 → ICU 19:37 → 3W 05-05 14:46
PROVIDERS: Emergency Medicine; Hospitalist; Internal Medicine; Internal Medicine Pulmonary Disease; Nurse Practitioner Acute Care; Nurse Practitioner Family
PROC: 5A09457 Assistance with Respiratory Ventilation, 24-96 Consecutive Hours, Continuous Positive Airway Pressure (ICD-10-PCS; 2017-05-03)
PROC: 02HV33Z Insertion of Infusion Device into Superior Vena Cava, Percutaneous Approach (ICD-10-PCS; principal; 2017-05-04)
DX: J69.0 Pneumonitis due to inhalation of food and vomit (principal); G93.40 Encephalopathy, unspecified; J96.01 Acute respiratory failure with hypoxia; J96.02 Acute respiratory failure with hypercapnia; E87.4 Mixed disorder of acid-base balance; J98.11 Atelectasis; I47.1 Supraventricular tachycardia; I10 Essential (primary) hypertension; E78.5 Hyperlipidemia, unspecified; K21.9 Gastro-esophageal reflux disease without esophagitis; L40.9 Psoriasis, unspecified; F03.90 Unspecified dementia, unspecified severity, without behavioral disturbance, psychotic disturbance, mood disturbance, and anxiety; K57.90 Diverticulosis of intestine, part unspecified, without perforation or abscess without bleeding; Z96.652 Presence of left artificial knee joint; Z96.641 Presence of right artificial hip joint; D72.829 Elevated white blood cell count, unspecified; L98.499 Non-pressure chronic ulcer of skin of other sites with unspecified severity; M19.90 Unspecified osteoarthritis, unspecified site; Z66 Do not resuscitate; J44.9 Chronic obstructive pulmonary disease, unspecified; E66.09 Other obesity due to excess calories; E87.6 Hypokalemia; G40.909 Epilepsy, unspecified, not intractable, without status epilepticus; Z28.21 Immunization not carried out because of patient refusal; Z88.1 Allergy status to other antibiotic agents; Z88.8 Allergy status to other drugs, medicaments and biological substances; Z90.89 Acquired absence of other organs; Z90.710 Acquired absence of both cervix and uterus; Z98.42 Cataract extraction status, left eye; Z98.41 Cataract extraction status, right eye; Z99.3 Dependence on wheelchair; Z68.31 Body mass index [BMI] 31.0-31.9, adult
CPT/HCPCS: 10078; 10779; 27000

== ENCOUNTER 2017-05-10 15:31 | Inpatient (IN) | payer OTHER, MEDICARE ==
[~2017-05-10] VITALS: Ht 152.4 cm; Wt 72.4 kg
--- NOTE | ~2017-05-10 | HC ---
[facility] [place] [address] CONSULTATION Name: BERNARDO DUPONT Room #: 510-P ADM IN M.R.#: [id number] Admission: 05/10/17 Attend Phys: Martin Gill MD Discharge: Date of : 29 Report #: [id number] THIS REPORT FOR: //name// CC: Martin Douglas DATE OF SERVICE: 05/13/2017 NEUROPSYCHOLOGY CONSULTATION Admitted to the rehabilitation unit on 05/10/2017. LIVESTOCK LABORER: Martin Humphrey, PhD REASON FOR THE CONSULTATION: To provide data and information to assist with treatment planning on the rehabilitation unit for this patient. HISTORY OF PRESENT ILLNESS: Records indicate the patient is an 86-year-old white female originally admitted with a seizure and acute mental status changes. She was noted to have acute respiratory failure and her presentation was thought to be compounded by opioids. After her respiratory failure improved, she was still noted to have evidence of encephalopathy. At the time of transfer to the rehabilitation unit, the following problem list was documented. 1. Encephalopathy. 2. Acute mental status changes with seizure. 3. Acute respiratory failure. 4. Premorbid wheelchair bound/lift chair with severe arthritis. 5. Left temporal ulcer. 6. Exogenous obesity. 7. History of asthma. METHODS: The records were reviewed and unit staffs were consulted and the patient was given the brief mini mental status examination too and clinical interview was conducted. FINDINGS: The patient was lying in bed, somewhat drowsy, but aroused herself when addressed and agreed to speak with this display card writer. 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 The patient reports she is the only one left of her family, having outlived all of her siblings and having no nieces or nephews or children. She reported she has a partner and that her partner has children and grandchildren and that they are her family now. The patient also reported that after retiring some 17 years ago, she spent a great deal of time pursuing her hobby, which was fishing, but then she reported with evident sadness that [facility] [address] [address] CONSULTATION Name: BERNARDO DUPONT [facility] Room #: 510-P [facility] IN M.R.#: [id number] Admission: 05/10/17 Attend Phys: Martin Gill MD Discharge: Date of : 29 Report #: [id number] she is no longer able to engage in that activity. The patient was asked about her mood and stated "I have been better. She stated that a hospital stay is never a pretty thing." The mini mental status examination too was attempted, and the first page was completed, but then the patient fell asleep while attempting to perform the attention and calculation task, and it was decided that further pursuit of that instrument given her status was not a good option. Her scores on the brief version of the examination fell in the borderline range of mental status, with some deficits and orientation to place. Specifically, she did not know the County or the floor of the building she was on, and with ability to remember only 1 of 3 previously registered words. It is this display card writer's opinion that where she not so drowsy, she would have probably been able to perform in the low average range. DIAGNOSIS AND RECOMMENDATIONS: This patient presents with mild mental status deficits, possibly associated with not yet resolved encephalopathy and possibly of other unknown causes. She is cooperative and coherent in her self-expression and able to benefit from teaching and counseling. It is recommended that supportive psychotherapy be considered to address her discouragement and depression and adjustment disorder with depressed mood diagnosis would appear appropriate. By: [id number] Martin Humphrey, PhD /nt
--- NOTE | ~2017-05-10 | PLAN ---
[facility] [place] [address] REHAB UNIT PLAN OF CARE Name: BERNARDO UDPONT Room #: 510-P DIS IN M.R.#: [id number] Admission: 05/10/17 Attend Phys: Martin Gill MD Discharge: 05/19/17 Date of : 29 Report #: [id number] THIS REPORT FOR: //name// CC: Martin Douglas DATE OF SERVICE: 05/13/2017 PROGRESS NOTE/OVERALL PLAN OF CARE SUBJECTIVE: The patient seen back today in followup. She is in no distress. Last recorded temperature 36.9, pulse 80, respirations 20, blood pressure 154/69. No focal calf swelling. She is working in therapies with transfers, mod assist. Gait contact guard 10 feet with a front-wheeled walker. Bed mobility is min assist sit to supine. In occupational therapy, lower body dressing is max assist. Upper body dressing is supervision. ASSESSMENT: 1. Encephalopathy. 2. Mental status changes with seizure. 3. Acute respiratory failure, which has resolved. 4. Premorbidly wheelchair bound lift chair with severe arthritis, especially left lower extremity and left upper extremity. 5. Left temporal ulcer. 6. Exogenous obesity. 7. History of asthma. PLAN: The overall plan of care is based on the preadmission screen, post-admission physician evaluation and information garnered from therapy assessments. 1. Estimated length of stay is probably 10 days to 2 weeks pending progress. 2. Medical prognosis is reasonably good. 3. Anticipated interventions includes the interdisciplinary acute inpatient rehabilitation program with PT and OT working with her. Speech therapy is assisting. Rehab nursing also assisting regarding medication management, skin care prophylaxis, bowel and bladder issues and nursing education. The retail client solutions consultant physicians are following as well as the interdisciplinary rehabilitation team. 4. Anticipated functional outcomes would be for her to improve as far as her basic transfers and ADLs as well as from a cognitive perspective, so that she can return back to the home setting. 5. Discharge destination is back home with her significant other. 6. Expected therapy by discipline includes PT, OT and speech 1 hour per day each five days a week throughout the duration of the acute inpatient rehabilitation stay. [address] [address] REHAB UNIT PLAN OF CARE Name: BERNARDO DUPONT Room #: 510-P [facility] IN M.R.#: [id number] Admission: 05/10/17 Attend Phys: Martin Gill MD Discharge: 05/19/17 Date of : 29 Report #: [id number] ADDENDUM The patient did miss some therapy minutes on 05/18/2017, secondary to refusal. By: [id number] [id number] Martin Gill MD /PMT
--- NOTE | ~2017-05-10 | H ---
[facility] [place] [address] HISTORY AND PHYSICAL Name: BERNARDO DUPONT Room #: 510-P ADM IN M.R.#: [id number] Admission: 05/10/17 Attend Phys: Martin Gill MD Discharge: Date of : 29 Report #: [id number] THIS REPORT FOR: //name// CC: Martin Douglas DATE OF SERVICE: 05/10/2017 HISTORY OF PRESENT ILLNESS: The patient is an 86-year-old white female originally admitted to [facility] with the seizure and acute mental status changes. She was noted to have acute respiratory failure which improved. There was a question of aspiration pneumonia with her history of COPD. She was placed on Keppra by Neurology. She was noted to have severe metabolic and respiratory acidosis. Her presentation was thought to be compounded by opioids. She was able to be extubated, improved, but was still noted to have evidence of encephalopathy. She was thought to be medically ready and has been admitted now for acute in-hospital inpatient rehabilitation. PAST MEDICAL HISTORY: Severe arthritis, left lower extremity and left shoulder, with essentially nonambulatory status. History of hypertension, gastroesophageal reflux disease, asthma, hyperlipidemia, diverticulitis, right hip replacement, left knee replacement, spinal injections. She has had a prior sternal fracture. PAST SURGICAL HISTORY: Includes appendectomy, hysterectomy, bilateral cataracts. HABITS: No history of tobacco or alcohol abuse. SOCIAL HISTORY: Lives with a female significant other, ramp into the house, lift chair to commode, was on home O2, power wheelchair. The significant other indicated that after the patient was back home, she was able to stand from a lift chair and transfer to the commode. The patient does not sleep in the bed. She has been utilizing a wheelchair as she has not been able to ambulate. This significant other noted that at most she was able to take a few steps prior to returning back to the home setting. She has been severely limited by her arthritis, left lower extremity as well as left shoulder. REVIEW OF SYSTEMS: No current complaints of chest pain, shortness of breath, abdominal discomfort. She does have pain which is chronic regarding the left shoulder, left hip and leg. This is all noted to be premorbid. PHYSICAL EXAMINATION: GENERAL: An 86-year-old white female, in no obvious distress. VITAL SIGNS: Last recorded temperature 98.7, pulse 85, respirations 20, blood pressure 148/46. [address] [address] HISTORY AND PHYSICAL Name: BERNARDO DUPONT Room #: 510-P [facility] IN .R.#: [id number] Admission: 05/10/17 Attend Phys: Martin Gill MD Discharge: Date of : 29 Report #: [id number] NEUROLOGIC: She is alert, obese white female. Answers basic questions without difficulty. There is some latency to her responses. She appears to have some cognitive slowing. She does follow basic 1 step commands. CHEST: Sounded clear to auscultation. CARDIOVASCULAR: Sounds irregular. ABDOMEN: Bowel sounds positive, nontender. GENITOURINARY AND RECTAL: Deferred. EXTREMITIES: She has functional range of motion of both upper extremities. Strength is a grade 4-/5 to 3+/5. She tends favor the left arm proximally and favor moving the left leg some as well. Strength of the lower extremities is probably a grade 3+/5. No focal calf swelling. No significant distal lower extremity edema. Transfers have been a min assist. Bed mobility; however, has been max assist. IMPRESSION: An 86-year-old white female with the following problem list: 1. Encephalopathy. 2. Acute mental status changes with seizure. 3. Acute respiratory failure which has resolved. 4. Premorbid wheelchair bound/lift chair with severe arthritis, especially left lower extremity and left upper extremity. 5. Left temporal ulcer. 6. Exogenous obesity. 7. History of asthma. PLAN: The patient is admitted for acute in-hospital inpatient rehabilitation. From a postadmission physician evaluation perspective, there are no relevant changes since the preadmission screening. Please see the above review of prior and current medical and functional conditions and comorbidities. Please see the patient's previous and current functional status. As far as risk of complications, the patient has multiple medical comorbidities as noted above. Initial plan of care involves the interdisciplinary acute inpatient rehabilitation program with the goal of maximizing the patient's functional independence, so that she can hopefully return back to her prior living situation. Prognosis is reasonably good with estimated length of stay probably at least 10 days to 2 weeks and likely longer if needed. Potential barriers would include her multiple medical comorbidities and decreased functional status. The patient meets diagnostic criteria for an acute in-hospital inpatient rehabilitation stay. She meets medical necessity criteria. We will have the [address] [address] HISTORY AND PHYSICAL Name: BERNARDO DUPONT Room #: 510-P [facility] IN M.R.#: [id number] Admission: 05/10/17 Attend Phys: Martin Gill MD Discharge: Date of : 29 Report #: [id number] real estate listing consultant physicians continue to follow. She does have the tolerance for therapies and has appropriate discharge goals back to the home setting. By: 0830 0910 Martin Gill MD /[facility]
[~2017-05-10 15:31] MED LIST changes: +AUGMENTIN 875-1 EACH PO; +DUONEB 2.5-0.5 M3 ML INH; +KEPPRA 500 MG500 M1 PO; +METOPROLOL SUCC50 MG PO; +VITAMIN D50000 UNIT PO
[2017-05-10 15:39] VITALS: BP 153/64
[2017-05-10 19:51] VITALS: BP 145/68
[2017-05-11 06:08] LABS: HEMATOCRIT 36.3 % (37.0-47.0); HEMOGLOBIN 11.8 gm/dL (12.0-15.0); MCH 28.1 pg (26.0-34.0); MCHC 32.7 g/dL (28.0-37.0); RBC 4.22 mil/uL (4.20-5.00); RDW 18.5 % (10.5-14.5); WBC 9.2 thou/uL (4.0-11.0)
[2017-05-11 06:26] LABS: CALCIUM 9.4 mg/dL (8.5-10.1); CREATININE 0.9 mg/dL (0.6-1.0); POTASSIUM 3.2 mmol/L (3.5-5.1)
[2017-05-11 08:15] VITALS: BP 142/75
[2017-05-11 20:21] VITALS: BP 143/59
[2017-05-12 07:26] VITALS: BP 120/64
[2017-05-12 20:06] VITALS: BP 154/69
[2017-05-13 08:20] VITALS: BP 156/63
[2017-05-13 20:04] VITALS: BP 152/64
[2017-05-14 08:10] VITALS: BP 151/41
[2017-05-14 14:43] LABS: CREATININE 1.1 mg/dL (0.6-1.0); POTASSIUM 4.4 mmol/L (3.5-5.1)
[2017-05-14 19:57] VITALS: BP 132/57
[2017-05-15 08:34] VITALS: BP 149/61
[2017-05-15 19:46] VITALS: BP 121/53
[2017-05-16 20:09] VITALS: BP 137/58
[2017-05-17 10:15] VITALS: BP 144/73
[2017-05-17 20:07] VITALS: BP 122/56
[2017-05-18 08:30] VITALS: BP 133/54
[2017-05-18 15:58] VITALS: BP 133/54
[2017-05-18 20:00] VITALS: BP 114/56
[2017-05-19 08:25] VITALS: BP 126/51
[2017-05-19] MEDS ORDERED: KEPPRA 500 MG500 M1 PO (15:38)
[2017-05-19] MEDS ORDERED: METOPROLOL SUCC50 MG PO (15:38)
== END 2017-05-19 17:00 | disposition home health service (06) | DRG 70 ==
PROVIDERS: Nurse Practitioner; Physical Medicine & Rehabilitation
DX: G93.40 Encephalopathy, unspecified (principal); J96.00 Acute respiratory failure, unspecified whether with hypoxia or hypercapnia; J69.0 Pneumonitis due to inhalation of food and vomit; L98.498 Non-pressure chronic ulcer of skin of other sites with other specified severity; I47.1 Supraventricular tachycardia; E66.8 Other obesity; M19.90 Unspecified osteoarthritis, unspecified site; I10 Essential (primary) hypertension; K21.9 Gastro-esophageal reflux disease without esophagitis; E78.5 Hyperlipidemia, unspecified; Z96.641 Presence of right artificial hip joint; Z96.652 Presence of left artificial knee joint; R56.9 Unspecified convulsions; E87.6 Hypokalemia; Z66 Do not resuscitate; J44.9 Chronic obstructive pulmonary disease, unspecified; E83.42 Hypomagnesemia; K59.00 Constipation, unspecified; R53.81 Other malaise; Z99.3 Dependence on wheelchair; Z68.31 Body mass index [BMI] 31.0-31.9, adult; Z90.49 Acquired absence of other specified parts of digestive tract; Z90.710 Acquired absence of both cervix and uterus; Z98.42 Cataract extraction status, left eye; Z98.41 Cataract extraction status, right eye; Z88.6 Allergy status to analgesic agent; Z88.1 Allergy status to other antibiotic agents; Z88.5 Allergy status to narcotic agent; Z88.8 Allergy status to other drugs, medicaments and biological substances
CPT/HCPCS: 10112

== ENCOUNTER 2017-08-10 13:56 | Inpatient (IN) | payer OTHER, MEDICARE ==
[~2017-08-10] VITALS: Ht 152.4 cm; Wt 68.9 kg
--- NOTE | ~2017-08-10 | S ---
[facility] [place] [address] SURGICAL PATH RPT PROCEDURE Name: BERNARDO MARTIN Room #: 437-P DIS IN M.R.#: [id number] Admission: 08/10/17 Date of : 29 Discharge: 08/15/17 Report #: [id number] Path Case #: [id number] PATHOLOGY REPORT COLLECTION DATE: 08/14/2017 RECEIVED DATE: 08/14/2017 SUBMITTING PHYS: Dr. Hima Collins OTHER PHYS: Dr. Odilon Jackson SPECIMEN(S) RECEIVED: A.Biopsy of colitis rule out ischemin * * * * * * * * * * * * FINAL DIAGNOSIS: Large intestinal mucosa, colitis, rule out ischemic, endoscopic biopsy: - Compatible with ischemic colitis (please see comment). - Negative for dysplasia or malignancy. COMMENT: Examination shows one fragment with surface ulceration, regenerative epithelium within the crypts as well as a fibrotic lamina propria. The remainder of fragments appear mostly unremarkable. Fibrin-filled vessels are not identified. Overall, findings are certainly compatible with ischemic colitis. The differential diagnosis includes pseudomembranous colitis. Please note medication (NSAID)-induced colitis / drug-related injury may resemble the same. There is no evidence of lymphocytic colitis or collagenous colitis, or infectious-type colitis. Please correlate clinically. (IUV:mml; 08/17/2017) PATHOLOGIST: Olga London M.D. REPORT ELECTRONICALLY SIGNED BY: Olga London M.D. DATE/TIME: 08/17/2017 12:41 * * * * * * * * * * * * GROSS PATHOLOGY: Received in formalin labeled "Bernardo Martin, BX of colitis rule out ischemic," are five segments of olsen soft tissue measuring 0.9 x 0.5 x 0.1 cm in aggregate dimensions. The specimen is submitted entirely in cassette A1. (SDY; 08/14/2017) CLINICAL HISTORY: [facility] Amena [facility] [place] [address] SURGICAL PATH RPT PROCEDURE Name: [facility] Room #: 437-P [facility] IN M.R.#: [id number] Admission: 08/10/17 Date of : 29 Discharge: 08/15/17 Report #: [id number] Path Case #: [id number] Abdominal pain, Diverticulosis, colitis rule out ischemic INITIAL CPT CODE(S): A; 22495 Professional services performed by [facility] at [place] [address] [address], [place] [address] Technical services performed by [facility] at [address] [place] [address], [address] [address]. [facility] [address] [place] [id number] PHONE: [phone] DIRECTOR: Emerson Hood M.D. * * * END OF REPORT * * *
--- NOTE | ~2017-08-10 | EKG ---
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 : 1930 Requested By: Damaris Douglas Order Number: [id number] MD: Rj Negrete Measurements Intervals [place] Rate: 79 P: 40 TX: 164 QRS: 8 QRSD: 81 T: 71 QT: 416 QTc: 477 Interpretive Statements Sinus rhythm Low voltage, precordial leads Borderline T abnormalities, anterior leads Borderline prolonged QT interval Compared to ECG 05/09/2017 15:00:29 T-wave abnormality now present Electronically Signed On 08-11-2017 7:43:36 WELDER [employer] ARC by Rj Negrete [email or web address] <ELECTRONICALLY SIGNED> By: Rj Negrete MD 08/11/17 0743 1359 [id number] Rj Negrete MD /EPI
[2017-08-10 13:57] VITALS: BP 81/47
[2017-08-10 14:25] LABS: ABSOLUTE NEUTROPHILS 3.3 thou/uL (1.4-8.2); BASOPHILS 1.1 % (0.0-2.0); EOSINOPHILS 3.9 % (0.0-3.0); HEMATOCRIT 39.9 % (37.0-47.0); HEMOGLOBIN 12.8 gm/dL (12.0-15.0); MCH 28.9 pg (26.0-34.0); MCV 90.2 fL (80.0-100.0); MONOCYTES 5.2 % (1.0-8.0); PLATELET COUNT 295 thou/uL (150-400); POLYS 45.8 % (36.0-66.0); RBC 4.42 mil/uL (4.20-5.00); RDW 14.7 % (10.5-14.5); WBC 7.2 thou/uL (4.0-11.0)
[2017-08-10 14:30] LABS: ANION GAP 11 mmol/L (7-16); BUN 30 mg/dL (7-18); CHLORIDE 104 mmol/L (98-107); CO2 29 mmol/L (21-32); CREATININE 1.6 mg/dL (0.6-1.0); GLUCOSE 104 mg/dL (74-106); POTASSIUM 3.5 mmol/L (3.5-5.1); SODIUM 144 mmol/L (136-145)
[2017-08-10 14:36] LABS: ALBUMIN 3.2 g/dL (3.4-5.0); DIRECT BILIRUBIN < 0.1 mg/dL (<0.1-0.3); SGOT 23 U/L (15-37); SGPT 13 U/L (30-65); TOTAL BILIRUBIN 0.3 mg/dL (<0.1-1.0); TOTAL PROTEIN 6.4 g/dL (6.4-8.2)
[2017-08-10 16:01] LABS: URINE BILIRUBIN NEGATIVE (Negative); URINE BLOOD NEGATIVE (Negative); URINE CLARITY CLEAR; URINE COLOR YELLOW; URINE GLUCOSE-RANDOM* NEGATIVE (Negative); URINE KETONES NEGATIVE (Negative); URINE LEUKOCYTES-REFLEX NEGATIVE (Negative); URINE NITRITE-REFLEX NEGATIVE (Negative); URINE PROTEIN (DIPSTICK) NEGATIVE (Negative); URINE UROBILINOGEN 0.2 E.U./dl (0.2-1.0)
[2017-08-10 16:35] VITALS: BP 100/51
[2017-08-10 16:57] VITALS: BP 94/50
[2017-08-10 17:59] VITALS: BP 97/67
[2017-08-10 19:31] VITALS: BP 126/50
[2017-08-11 00:01] VITALS: BP 107/41
[2017-08-11 03:23] VITALS: BP 114/45
[2017-08-11 06:36] LABS: ABSOLUTE NEUTROPHILS 9.7 thou/uL (1.4-8.2); BASOPHILS 0.2 % (0.0-2.0); HEMATOCRIT 33.4 % (37.0-47.0); HEMOGLOBIN 11.1 gm/dL (12.0-15.0); LYMPHOCYTES 9.6 % (24.0-44.0); MCH 29.8 pg (26.0-34.0); MCHC 33.2 g/dL (28.0-37.0); MCV 89.6 fL (80.0-100.0); MONOCYTES 7.6 % (1.0-8.0); PLATELET COUNT 272 thou/uL (150-400); POLYS 82.6 % (36.0-66.0); RBC 3.73 mil/uL (4.20-5.00); RDW 15.2 % (10.5-14.5); WBC 11.8 thou/uL (4.0-11.0)
[2017-08-11 08:00] VITALS: BP 121/97
[2017-08-11 16:00] VITALS: BP 107/47
[2017-08-11 19:10] VITALS: BP 109/36
[2017-08-12 02:56] VITALS: BP 130/48
[2017-08-12 04:36] LABS: ALBUMIN 2.3 g/dL (3.4-5.0); CALCIUM 7.7 mg/dL (8.5-10.1); CREATININE 1.3 mg/dL (0.6-1.0)
[2017-08-12 04:45] LABS: POTASSIUM 2.7 mmol/L (3.5-5.1)
[2017-08-12 07:30] VITALS: BP 109/44
[2017-08-12 15:17] VITALS: BP 129/48
[2017-08-12 19:40] VITALS: BP 148/66
[2017-08-13 03:34] VITALS: BP 127/52
[2017-08-13 06:40] LABS: HEMATOCRIT 29.8 % (37.0-47.0); HEMOGLOBIN 9.7 gm/dL (12.0-15.0); MCH 29.2 pg (26.0-34.0); MCHC 32.6 g/dL (28.0-37.0); MCV 89.4 fL (80.0-100.0); RBC 3.34 mil/uL (4.20-5.00); RDW 14.9 % (10.5-14.5); WBC 7.2 thou/uL (4.0-11.0)
[2017-08-13 06:54] LABS: ALBUMIN 2.4 g/dL (3.4-5.0); CALCIUM 8.1 mg/dL (8.5-10.1); CREATININE 0.9 mg/dL (0.6-1.0); PHOSPHORUS 2.3 mg/dL (2.5-4.9)
[2017-08-13 06:56] LABS: POTASSIUM 2.6 mmol/L (3.5-5.1)
[2017-08-13 08:30] LABS: MAGNESIUM 2.2 mg/dL (1.8-2.4)
[2017-08-13 20:45] VITALS: BP 177/80
[2017-08-14 05:00] VITALS: BP 136/67
[2017-08-14 05:00] LABS: HEMATOCRIT 27.8 % (37.0-47.0); HEMOGLOBIN 9.3 gm/dL (12.0-15.0); MCH 29.7 pg (26.0-34.0); MCHC 33.5 g/dL (28.0-37.0); MCV 88.6 fL (80.0-100.0); RBC 3.14 mil/uL (4.20-5.00); RDW 14.2 % (10.5-14.5); WBC 8.4 thou/uL (4.0-11.0)
[2017-08-14 05:13] LABS: ALBUMIN 2.2 g/dL (3.4-5.0); CALCIUM 8.1 mg/dL (8.5-10.1); CREATININE 0.8 mg/dL (0.6-1.0); PHOSPHORUS 2.2 mg/dL (2.5-4.9)
[2017-08-14 05:20] LABS: POTASSIUM 2.8 mmol/L (3.5-5.1)
[2017-08-14 11:44] VITALS: BP 177/80
[2017-08-14 16:00] VITALS: BP 167/76
[2017-08-14 23:19] VITALS: BP 145/65
[2017-08-15 04:44] LABS: ALBUMIN 2.3 g/dL (3.4-5.0); CALCIUM 7.9 mg/dL (8.5-10.1); CREATININE 0.8 mg/dL (0.6-1.0); PHOSPHORUS 2.5 mg/dL (2.5-4.9); POTASSIUM 4.2 mmol/L (3.5-5.1)
[2017-08-15 06:50] VITALS: BP 158/76
[2017-08-15 07:42] VITALS: BP 152/72
[2017-08-15] MEDS ORDERED: LEVAQUIN 500 M500 M2 PO (10:14)
[2017-08-15] MEDS ORDERED: FLAGYL500 MG PO (10:14)
[2017-08-15] MEDS ORDERED: BENTYL 10 MG CA10 M1 PO (10:15)
[2017-12-17] MEDS ORDERED: DURAGESIC1 EAC1 TRANSDERM (12:39)
[2017-12-17] MEDS ORDERED: DILAUDID 2 MG TA2 MG PO (12:39)
[2017-12-17] MEDS ORDERED: LEVETIRACETAM1000 MG PO (12:41)
== END 2017-08-15 14:45 | DRG 682 ==
LOC: ER 13:56 → 4S 16:15 → EROBS 16:15 → 4S 17:02
PROVIDERS: Emergency Medicine; Hospitalist; Internal Medicine Gastroenterology
PROC: 05HB33Z Insertion of Infusion Device into Right Basilic Vein, Percutaneous Approach (ICD-10-PCS; 2017-08-13)
PROC: B54MZZA Ultrasonography of Right Upper Extremity Veins, Guidance (ICD-10-PCS; 2017-08-13)
PROC: 0DBN8ZX Excision of Sigmoid Colon, Via Natural or Artificial Opening Endoscopic, Diagnostic (ICD-10-PCS; principal; 2017-08-14)
DX: N17.9 Acute kidney failure, unspecified (principal); E43 Unspecified severe protein-calorie malnutrition; K52.9 Noninfective gastroenteritis and colitis, unspecified; L40.9 Psoriasis, unspecified; K21.9 Gastro-esophageal reflux disease without esophagitis; F03.90 Unspecified dementia, unspecified severity, without behavioral disturbance, psychotic disturbance, mood disturbance, and anxiety; J45.909 Unspecified asthma, uncomplicated; E78.5 Hyperlipidemia, unspecified; I95.9 Hypotension, unspecified; E86.0 Dehydration; F41.9 Anxiety disorder, unspecified; F32.9 Major depressive disorder, single episode, unspecified; E87.6 Hypokalemia; K64.8 Other hemorrhoids; G62.9 Polyneuropathy, unspecified; N18.9 Chronic kidney disease, unspecified; I12.9 Hypertensive chronic kidney disease with stage 1 through stage 4 chronic kidney disease, or unspecified chronic kidney disease; K57.30 Diverticulosis of large intestine without perforation or abscess without bleeding; Z96.641 Presence of right artificial hip joint; Z96.652 Presence of left artificial knee joint; Z90.49 Acquired absence of other specified parts of digestive tract; Z90.710 Acquired absence of both cervix and uterus; Z98.42 Cataract extraction status, left eye; Z98.41 Cataract extraction status, right eye; Z79.899 Other long term (current) drug therapy; Z88.6 Allergy status to analgesic agent; Z88.1 Allergy status to other antibiotic agents; Z88.5 Allergy status to narcotic agent; Z88.8 Allergy status to other drugs, medicaments and biological substances
CPT/HCPCS: 10100; 27000; 62110; 62900; 70005

== ENCOUNTER 2018-01-12 18:11 | Inpatient (IN) | payer OTHER, MEDICARE ==
[~2018-01-12] VITALS: Ht 152.4 cm; Wt 62.3 kg
--- NOTE | ~2018-01-12 | 2DMMODE ---
[facility] [address] [place] [address] 2 D/M-MODE ECHOCARDIOGRAM Name: BERNARDO DUPONT [facility] Room #: 216-P ADM IN M.R.#: [id number] Admission: 01/12/18 Attend Phys: Napoleon Cullen MD Discharge: Date of : 28 Date of Service: 01/13/18 1105 Report #: [id number] THIS REPORT FOR: //name// APPROVED REPORT Study performed: 01/13/2018 09:39:41 EXAM: Comprehensive 2D, Doppler, and color-flow Echocardiogram Patient Location: Bedside Room #: 216 Status: routine BSA: 1.59 HR: 47 bpm BP: 153/57 mmHg Other Information Study Quality: Adequate Indications Syncope Hypertension/HDD 2D Dimensions RVDd: 26.10 mm LVEF(%): 55.32 (>50%) IVSd: 10.46 (7-11mm) LVOT Diam: 20.48 (18-24mm) LVDd: 42.70 mm PWd: 8.57 (7-11mm) Ascending Ao: 29.71 (22-36mm) LVDs: 30.52 (25-40mm) Aortic Root: 29.01 mm IVC: 16.00 mm Jeffery's LVEF: 55.32 % Volumes Left Atrial Volume (Systole) Single Plane 4CH: 31.30 mL Single Plane 2CH: 40.63 mL LA ESV Index: 26.00 mL/m2 Aortic Valve AoV Peak Abrahan.: 1.41 m/s AO Peak Gr.: 8.00 mmHg LVOT Max P.58 mmHg LVOT Max V: 1.07 m/s BEATRICE Vmax: 2.49 cm2 Mitral Valve E/A Ratio: 0.6 MV Decel. Time: 341.96 ms [facility] [place] [address] 2 D/M-MODE ECHOCARDIOGRAM Name: BERNARDO DUPONT [facility] Room #: 216-P [facility] IN M.R.#: [id number] Admission: 01/12/18 Attend Phys: Napoleon Cullen MD Discharge: Date of : 29 Date of Service: 01/13/18 1105 Report #: [id number] E Max Abrahan.: 0.62 m/s MV A Abrahan.: 1.01 m/s MV PHT: 99.17 ms IVRT: 156.86 ms Pulmonary Valve PV Peak Abrahan.: 0.84 m/s PV Peak Gr.: 2.83 mmHg Pulmonary Vein P Vein S: 0.66 m/s P Vein A: 0.31 m/s P Vein D: 0.64 m/s P Vein A Dur.: 124.6 msec P Vein S/D Ratio: 1.03 Tricuspid Valve TR Peak Abrahan.: 2.50 m/s TR Peak Gr.: 25.10 mmHg PA Pressure: 30.00 mmHg Left Ventricle The left ventricle is normal size. There is normal LV segmental wall motion. There is normal left ventricular wall thickness. The left ventricular systolic function is normal. The left ventricular ejection fraction is within the normal range. LVEF is 55-60%. Grade I - abnormal relaxation pattern. Right Ventricle The right ventricle is normal size. The right ventricular systolic function is normal. Atria The left atrium size is normal. The right atrium size is normal. Aortic Valve The aortic valve is normal in structure. Aortic valve is calcified. No aortic regurgitation is present. There is no aortic valvular stenosis. Mitral Valve The mitral valve is normal in structure. Trace to mild mitral regurgitation. No evidence of mitral valve stenosis. Tricuspid Valve The tricuspid valve is normal in structure. There is trace tricuspid regurgitation. Estimated PAP 30 mmHg. There [place] [address] 2 D/M-MODE ECHOCARDIOGRAM Name: BERNARDO DUPONT Room #: 216-P [facility] IN [facility].#: [id number] Admission: 01/12/18 Attend Phys: Napoleon Cullen MD Discharge: Date of : 29 Date of Service: 01/13/18 1105 Report #: [id number] Pulmonic Valve The pulmonary valve is normal in structure. There is no pulmonic valvular regurgitation. Great Vessels The aortic root is normal in size. IVC is normal in size and collapses >50% with inspiration. Pericardium There is no pericardial effusion. <Conclusion> The left ventricle is normal size. LVEF is 55-60%. Grade I - abnormal relaxation pattern. The right ventricle is normal size. The left atrium size is normal. The aortic valve is normal in structure. Aortic valve is calcified. There is no aortic valvular stenosis. Trace to mild mitral regurgitation. There is trace tricuspid regurgitation. Estimated PAP 30 mmHg. There is no pulmonary hypertension. The aortic root is normal in size. There is no pericardial effusion. <ELECTRONICALLY SIGNED> By: Jimmy Redding MD, FACC 01/13/18 1105 1105 1105 Jimmy Redding MD, FACC /INF
--- NOTE | ~2018-01-12 | HC ---
[facility] [place] [address] CONSULTATION Name: BERNARDO DUPONT Room #: 216-P ADM IN M.R.#: [id number] Admission: 01/12/18 Attend Phys: Napoleon Cullen MD Discharge: Date of : 29 Report #: [id number] THIS REPORT FOR: //name// CC: Napoleon Cullen DATE OF SERVICE: 01/14/2018 HISTORY OF PRESENT ILLNESS: This is an 87-year-old female patient who was evaluated by me for any neurological etiology for the patient's fall. The patient is a poor historian. Nobody else is here, which can provide or verify the history. She said these falls are going on for long time. For about a year, she has become weaker in the left leg. To the Emergency Room physician, she indicated that this is preceded by dizziness. To me, she said it is not. So history is not very clear. It started spontaneously. She has suffered trauma because of it, but they did not start because of fall. She does not know anything which makes it better or worse. REVIEW OF SYSTEMS: A 14-point review of system is carried out and is pretty extensive. It is positive for psoriasis, hypertension, dementia, GERD, asthma, hyperlipidemia, diverticulosis, hip replacement, knee placement, spinal injection, appendectomy, hysterectomy, bilateral cataracts. Her speech is impaired, but she does not know whether she had a stroke. She says she has no pacemaker, but she does not provide any more cardiac history. She denies any visual changes, ENT changes or any respiratory, GI, , constitutional, dermatological, psychiatric, throat, allergic symptom associated with present symptomatology. PAST MEDICAL HISTORY: Positive for weakness on the left leg. FAMILY HISTORY: Negative for early age strokes. SOCIAL HISTORY: She lives in [facility]. PHYSICAL EXAMINATION: Indicate she is alert. She can tell me what month it is, but could not tell me the date. She could name the hospital, but her memory and fund of knowledge is poor. Speech does look somewhat slurred. Cranial nerve examination 2-12 looks mostly unremarkable. She is weak in the left lower extremity. Reflexes are diminished tone and sensation look intact. [id number] is unremarkable. She could not cooperate with the fundus examination. She is a reasonably well-built individual who does not have any dysmorphic features of eyes, ears and face. She does not have any thyroid mass. Her hearing and vision looks adequate. Her pulses are palpable, but she has no edema, cyanosis or jaundice. Cardiac examination is unremarkable. No respiratory difficulty or rhonchi was noticed. Blood pressure is 140/74, respiration is 14, pulse is 62, temperature is 97.8. [facility] [address] [place] [address] CONSULTATION Name: KIAHTONEGABE MAYANK Room #: 216-P ADM IN M.R.#: [id number] Admission: 01/12/18 Attend Phys: Napoleon Cullen MD Discharge: Date of : 29 Report #: [id number] LABORATORY DATA: Indicate a white count of 5.9 and sodium of 143. She did have a CT scan of the head and C-spine that mostly looks unremarkable. She said she does not have any contraindication for MRI. She had pelvic x-rays, which showed pretty significant pathology on the left hip. IMPRESSION: There are probably multiple causes which are going on for the patient's fall. She has weakness of the left leg and she has a pretty significant pathology of the left hip. I suspect that is contributing to her falls. She may have problem with her spine and she has dementia and that may also cause gait apraxia. Question is how much workup to do and how much management to do on her. It is difficult. I will suggest getting an Orthopedic consult for the left hip. We will try to do an MRI in this patient to see if we can find some pathology there. Treatment of management is going to be difficult in this patient. RECOMMENDATIONS: 1. B12 level, TSH, sed rate, TULOI. 2. An MRI of the brain and thoracic spine. We will await this workup and see if we need to do anything differently. We will suggest PT/OT evaluation and management. By: [id number] Femi Bentley MD /nt
--- NOTE | ~2018-01-12 | H ---
[facility] [place] [address] HISTORY AND PHYSICAL Name: BERNARDO DUPONT Room #: 216-P ADM IN M.R.#: [id number] Admission: 01/12/18 Attend Phys: Napoleon Cullen MD Discharge: Date of : 29 Report #: [id number] THIS REPORT FOR: //name// CC: Napoleon Cullen DATE OF SERVICE: 01/12/2018 HISTORY OF PRESENT ILLNESS: The patient is an 87-year-old female who was brought to the Emergency Room for recurrent falls. Apparently, the patient has been having multiple falls in her assisted living facility without finding any reason, but with her fall today, she had bruising to an open wound to her left forehead and on arrival to the hospital, she was bradycardic with heart rates in the 40s and 50s. PAST MEDICAL HISTORY: Significant for syncopal episode in 07/2017. The patient had a history of anxiety, diverticulosis and diverticulitis, peripheral neuropathy, previous history of C. difficile colitis, depression, hyperlipidemia, chronic back pain, chronic kidney disease, and seizure disorder. MEDICATIONS: Reviewed and reconciled. ALLERGIES: CEFUROXIME. SOCIAL HISTORY: The patient is living in [facility] facility. No recent history of smoking, alcohol use or drug use. FAMILY HISTORY: Noncontributory. REVIEW OF SYSTEMS: The patient is awake. She is able to answer questions without any problem. She is not complaining of any headache, no blurred vision. No runny nose, sore throat, cough, chest pain, shortness of breath or palpitation. No nausea, vomiting or changes in her bowels. PHYSICAL EXAMINATION: VITAL SIGNS: Showed temperature of 36.6, pulse 53, respirations 16, blood pressure 153/57. HEAD AND NECK: Unremarkable. NECK: Supple. LUNGS: Clear to auscultation with good air entry bilaterally. CARDIAC: S1, S2, without any murmur or gallop. Bradycardic. ABDOMEN: Benign. Bowel sounds were positive. EXTREMITIES: Without any edema. LABORATORY DATA: A 12-lead EKG showed regular sinus rhythm with a heart rate of 50, short [place] interval. The patient's CBC with diff showed white count of 6.7, hemoglobin 11.5, hematocrit 34.9, platelet count 226 and neutrophils are 55%. [address] [address] HISTORY AND PHYSICAL Name: BERNARDO DUPONT [facility]: [facility] ..#: [id number] Admission: 01/12/18 Attend Phys: Napoleon Cullen MD Discharge: Date of : 29 Report #: [id number] The patient's chest x-ray showed no acute cardiopulmonary process. A comprehensive metabolic panel showed a sodium of 143, potassium 3.6, chloride 103, bicarbonate 33, BUN 24, creatinine 1.3, ALT 26, total protein 6.3, albumin 3.2. Troponin less than 0.06. TSH is 2.5. CT of the head showed chronic age-related changes, no acute intracranial process identified. CT of the spine showed no cervical fracture detected, severe multilevel spondylosis and facet arthropathy, most pronounced in the mid cervical spine area. CT of the thoracic spine showed no fracture detected, dextroscoliosis with multilevel spondylosis, small pericardial effusion with suspected L1 and L3 vertebral body mild compression fracture. ASSESSMENT AND PLAN: 1. Recurrent syncopal episodes. 2. Bradycardia. 3. Hypertension. The patient was admitted to the hospital with the above-mentioned diagnoses. I resumed the patient's medications except the blood pressure medicine. I will have Cardiology to consult on the patient. We will have an echocardiogram and carotid Doppler ultrasound for the syncopal episode. We will have Physical Therapy and Occupational Therapy to work with the patient. <ELECTRONICALLY SIGNED> By: Napoleon Cullen MD 01/16/18 0803 0648 0819 Napoleon Cullen MD /nt
--- NOTE | ~2018-01-12 | EKG ---
[place] [address] [place] [place] [place] [address] ELECTROCARDIOGRAM REPORT Name: KIAHBERNARDO Room #: 216-P ADM IN M.R.#: [id number] Admission: 01/12/18 Attend Phys: Napoleon Cullen MD Discharge: Date of : 29 Report #: [id number] THIS REPORT FOR: //name// [facility] ED Test Date: 2018-01-12 Test Time: 18:13:42 Pat Name: BERNARDO DUPONT Department: Room: Gender: F Draw Operator: JANES : 1930 Requested By: Odilon Meadows Order Number: [id number] MD: Laurent Rashid Measurements Intervals [place] Rate: 50 P: 45 OK: 62 QRS: 18 QRSD: 86 T: 28 QT: 479 QTc: 437 Interpretive Statements Sinus rhythm Nonspecific T wave abnormality Compared to ECG 08/10/2017 13:59:21 No significant change was found Electronically Signed On 01-14-2018 7:34:38 CDT by Laurent Rashid [email or web address] <ELECTRONICALLY SIGNED> By: Laurent Rashid MD, [facility] 01/14/18 07 12 12 Laurent Rashid MD, [facility] /EPI
[~2018-01-12 18:11] MED LIST changes: +BENTYL 10 MG CA10 M1 PO; +DURAGESIC1 EAC1 TRANSDERM; +LEVAQUIN 500 M500 M2 PO; +LEVETIRACETAM1000 MG PO
[2018-01-12 18:12] VITALS: BP 112/38
[2018-01-12 19:02] LABS: ABSOLUTE NEUTROPHILS 3.7 thou/uL (1.4-8.2); BASOPHILS 0.6 % (0.0-2.0); HEMATOCRIT 34.9 % (37.0-47.0); HEMOGLOBIN 11.5 gm/dL (12.0-15.0); LYMPHOCYTES 30.3 % (24.0-44.0); MCH 28.4 pg (26.0-34.0); MCHC 32.9 g/dL (28.0-37.0); MCV 86.4 fL (80.0-100.0); MONOCYTES 10.7 % (1.0-8.0); PLATELET COUNT 226 thou/uL (150-400); POLYS 55.4 % (36.0-66.0); RBC 4.05 mil/uL (4.20-5.00); WBC 6.7 thou/uL (4.0-11.0)
[2018-01-12 19:11] LABS: ANION GAP 7 mmol/L (7-16); BUN 24 mg/dL (7-18); CALCIUM 8.8 mg/dL (8.5-10.1); CHLORIDE 103 mmol/L (98-107); CO2 33 mmol/L (21-32); CREATININE 1.3 mg/dL (0.6-1.0); GLUCOSE 101 mg/dL (74-106); POTASSIUM 3.6 mmol/L (3.5-5.1); SODIUM 143 mmol/L (136-145)
[2018-01-12 19:19] LABS: ALBUMIN 3.2 g/dL (3.4-5.0); MAGNESIUM 2.3 mg/dL (1.8-2.4); SGOT 23 U/L (15-37); SGPT 26 U/L (30-65); TOTAL BILIRUBIN 0.4 mg/dL (<0.1-1.0); TOTAL PROTEIN 6.3 g/dL (6.4-8.2); TROPONIN-I <0.06 ng/mL (<0.06)
[2018-01-12 20:51] VITALS: BP 112/38
[2018-01-12 21:17] VITALS: BP 113/48
[2018-01-12 22:01] VITALS: BP 141/57
[2018-01-12 23:30] VITALS: BP 108/55
[2018-01-13 04:09] VITALS: BP 153/57
[2018-01-13 06:57] LABS: ABSOLUTE NEUTROPHILS 3.2 thou/uL (1.4-8.2); EOSINOPHILS 3.3 % (0.0-3.0); HEMATOCRIT 37.1 % (37.0-47.0); HEMOGLOBIN 12.3 gm/dL (12.0-15.0); MCH 28.5 pg (26.0-34.0); MCHC 33.1 g/dL (28.0-37.0); PLATELET COUNT 238 thou/uL (150-400); POLYS 53.7 % (36.0-66.0); RBC 4.31 mil/uL (4.20-5.00); RDW 18.3 % (10.5-14.5); WBC 5.9 thou/uL (4.0-11.0)
[2018-01-13 07:07] LABS: CALCIUM 8.9 mg/dL (8.5-10.1); POTASSIUM 3.5 mmol/L (3.5-5.1)
[2018-01-13 08:27] VITALS: BP 147/52
[2018-01-13 08:27] LABS: URINE BILIRUBIN NEGATIVE (Negative); URINE BLOOD NEGATIVE (Negative); URINE CLARITY CLEAR; URINE COLOR YELLOW; URINE GLUCOSE-RANDOM* NEGATIVE (Negative); URINE KETONES NEGATIVE (Negative); URINE LEUKOCYTES-REFLEX NEGATIVE (Negative); URINE NITRITE-REFLEX NEGATIVE (Negative); URINE PROTEIN (DIPSTICK) NEGATIVE (Negative); URINE SPECIFIC GRAVITY <= 1.005 (1.005-1.035); URINE UROBILINOGEN 0.2 E.U./dl (0.2-1.0)
[2018-01-13 12:10] VITALS: BP 152/68
[2018-01-13 15:23] VITALS: BP 148/44
[2018-01-13 19:53] VITALS: BP 127/55
[2018-01-14 03:55] VITALS: BP 136/62
[2018-01-14 07:49] VITALS: BP 160/80
[2018-01-14 11:54] VITALS: BP 140/74
[2018-01-14 16:13] VITALS: BP 140/53; BP 140/54
[2018-01-14 20:46] VITALS: BP 160/69
[2018-01-15 04:38] VITALS: BP 146/60
[2018-01-15 07:04] LABS: HEMATOCRIT 36.2 % (37.0-47.0); HEMOGLOBIN 12.1 gm/dL (12.0-15.0); MCH 28.3 pg (26.0-34.0); MCHC 33.4 g/dL (28.0-37.0); MCV 84.8 fL (80.0-100.0); RBC 4.27 mil/uL (4.20-5.00); WBC 9.3 thou/uL (4.0-11.0)
[2018-01-15 07:15] LABS: CALCIUM 8.4 mg/dL (8.5-10.1); POTASSIUM 3.8 mmol/L (3.5-5.1)
[2018-01-15 07:52] LABS: URINE BILIRUBIN NEGATIVE (Negative); URINE BLOOD 1+ (Negative); URINE CLARITY CLOUDY; URINE COLOR YELLOW; URINE GLUCOSE-RANDOM* NEGATIVE (Negative); URINE KETONES NEGATIVE (Negative); URINE LEUKOCYTES-REFLEX 1+ (Negative); URINE NITRITE-REFLEX POSITIVE (Negative); URINE PROTEIN (DIPSTICK) TRACE (Negative); URINE UROBILINOGEN 0.2 E.U./dl (0.2-1.0)
[2018-01-15 08:10] LABS: CASTS None Seen /LPF (None Seen); CRYSTALS None Seen /LPF (None Seen); SQUAMOUS 0-3 Few /LPF (0-3); URINE WBC-REFLEX >25 Many /HPF (0-5)
[2018-01-15 08:11] LABS: BACTERIA-REFLEX >30 Many /HPF (None Seen); URINE RBC 0-2 Rare /HPF (0-2)
[2018-01-15 08:28] VITALS: BP 145/81
[2018-01-15 16:15] VITALS: BP 135/68
[2018-01-15 20:39] VITALS: BP 109/53
[2018-01-16 04:35] VITALS: BP 133/67
[2018-01-16] MEDS ORDERED: FLOMAX0.4 MG PO (07:57)
[2018-01-16 08:12] LABS: HEMATOCRIT 35.1 % (37.0-47.0); MCH 28.8 pg (26.0-34.0); MCHC 34.1 g/dL (28.0-37.0); MCV 84.4 fL (80.0-100.0); RBC 4.16 mil/uL (4.20-5.00); RDW 17.9 % (10.5-14.5); WBC 6.1 thou/uL (4.0-11.0)
[2018-01-16 08:22] LABS: CALCIUM 8.7 mg/dL (8.5-10.1); CREATININE 0.8 mg/dL (0.6-1.0); POTASSIUM 3.6 mmol/L (3.5-5.1)
[2018-01-16 08:30] VITALS: BP 111/60
[2018-01-16 11:49] VITALS: BP 117/68
== END 2018-01-16 15:03 | DRG 309 ==
LOC: ER 18:11 → EROBS 20:25 → 2N 20:25
PROVIDERS: Emergency Medicine; Internal Medicine; Nurse Practitioner Adult Health
DX: R00.1 Bradycardia, unspecified (principal); N17.9 Acute kidney failure, unspecified; R55 Syncope and collapse; L40.9 Psoriasis, unspecified; F03.90 Unspecified dementia, unspecified severity, without behavioral disturbance, psychotic disturbance, mood disturbance, and anxiety; K21.9 Gastro-esophageal reflux disease without esophagitis; E78.5 Hyperlipidemia, unspecified; F41.9 Anxiety disorder, unspecified; G62.9 Polyneuropathy, unspecified; N18.3 Chronic kidney disease, stage 3 (moderate); F32.9 Major depressive disorder, single episode, unspecified; I12.9 Hypertensive chronic kidney disease with stage 1 through stage 4 chronic kidney disease, or unspecified chronic kidney disease; R33.9 Retention of urine, unspecified; M25.552 Pain in left hip; G40.909 Epilepsy, unspecified, not intractable, without status epilepticus; J45.909 Unspecified asthma, uncomplicated; Z96.641 Presence of right artificial hip joint; Z96.652 Presence of left artificial knee joint; W18.30XA Fall on same level, unspecified, initial encounter; Y93.89 Activity, other specified; Y92.89 Other specified places as the place of occurrence of the external cause; Y99.8 Other external cause status; Z90.49 Acquired absence of other specified parts of digestive tract; Z90.710 Acquired absence of both cervix and uterus; Z98.42 Cataract extraction status, left eye; Z98.41 Cataract extraction status, right eye; Z79.82 Long term (current) use of aspirin; Z79.899 Other long term (current) drug therapy; Z88.5 Allergy status to narcotic agent; Z88.8 Allergy status to other drugs, medicaments and biological substances
CPT/HCPCS: 10081

== ENCOUNTER 2018-05-10 03:58 | Inpatient (IN) | payer OTHER, MEDICARE ==
[~2018-05-10] VITALS: Ht 157.5 cm; Wt 73.5 kg
--- NOTE | ~2018-05-10 | EKG ---
[address] [address] ELECTROCARDIOGRAM REPORT Name: KIAHMARINAJARODGABE SPRINGERANNA Room #: 418-P [facility].#: [id number] Admission: 05/10/18 Attend Phys: Napoleon Cullen MD Discharge: Date of : 29 Report #: [id number] THIS REPORT FOR: //name// [facility] ED Test Date: 2018-05-10 Test Time: 04:25:37 Pat Name: BERNARDO DUPONT Department: Room: [facility] Gender: F [employer] Specialist: reza : 1930 Requested By: Gregorio Olson Order Number: [id number] MD: Rj Negrete Measurements Intervals [place] Rate: 62 P: 43 MA: 186 QRS: 16 QRSD: 84 T: 34 QT: 456 QTc: 463 Interpretive Statements Sinus rhythm Low voltage, precordial leads Compared to ECG 01/12/2018 18:13:42 Low QRS voltage now present T-wave abnormality no longer present Electronically Signed On 05-10-2018 8:35:44 CDT by Rj Negrete [email or web address] <ELECTRONICALLY SIGNED> By: Rj Negrete MD 05/10/18 0835 0425 0425 Rj Negrete MD /EPI
--- NOTE | ~2018-05-10 | HC ---
[facility] [place] [address] CONSULTATION Name: BERNARDO DUPONT Room #: 427-P [facility] IN M.R.#: [id number] Admission: 05/10/18 Attend Phys: Napoleon Cullen MD Discharge: 05/13/18 Date of : 29 Report #: [id number] THIS REPORT FOR: //name// CC: Napoleon Cullen DATE OF SERVICE: 05/13/2018 CHIEF COMPLAINT: Lesion to the scalp. HISTORY OF PRESENT ILLNESS: This is an 87-year-old female patient who is admitted to the hospital from [facility]. The patient was admitted after a fall after losing her balance. She did not have any loss of consciousness. She was noted to have a lesion on the left side of her scalp that has been present for some time. The patient relates that she did have a diagnosis of basal cell carcinoma and she has been treated with an oral medication to shrink it and then she reports a planned surgery to excise it. ALLERGIES: Cefuroxime. MEDICATIONS: Currently reviewed. FAMILY HISTORY: Noncontributory. SOCIAL HISTORY: The patient lives in assisted living. No history of alcohol or drug use or tobacco use. REVIEW OF SYSTEMS: CONSTITUTIONAL: The patient denies fever, chills or weight loss. NEUROLOGICAL: The patient denies focal weakness. EYES: The patient denies visual changes, redness and drainage. EAR, NOSE, AND THROAT: The patient denies earache, nasal drainage or sore throat. CARDIOVASCULAR: The patient denies chest pain or palpitations, diaphoresis. PULMONARY: The patient denies cough, shortness of breath. GASTROINTESTINAL: The patient denies nausea, vomiting or abdominal pain. ORTHOPEDIC: The patient has pain from the extremities. DERMATOLOGIC: The patient does note a basal cell carcinoma to the scalp area. Other systems in a 14-point review of systems are negative. PHYSICAL EXAMINATION: VITAL SIGNS: At this time include pulse 68, respiratory rate of 18, blood pressure 160/58, temperature of 97.6. GENERAL: This is a somewhat frail appearing female patient who appears to be in minimal distress. HEAD: Demonstrates a circular area of ulceration that has a moderately [facility] [address] [place] [address] CONSULTATION Name: BERNAROD DUPONT MAYANK Room #: 427-P [facility] IN M.R.#: [id number] Admission: 05/10/18 Attend Phys: Napoleon Cullen MD Discharge: 05/13/18 Date of : 29 Report #: [id number] disorganized appearance to the left frontotemporal region. It is nontender. There is moderate crusting at the wound margins. Remainder of the head is atraumatic. Nose and throat are clear. NECK: Supple. LUNGS: Clear. HEART: Regular rate. ABDOMEN: Soft. Bowel sounds present. NEUROLOGIC: The patient is alert, moving all 4 extremities spontaneously. LABORATORY DATA: Includes sodium 143, potassium 3.9, BUN 14, creatinine 0.9. Albumin is a little bit low at 2.7. White blood cell count 5.0, the hemoglobin 10.4. CLINICAL IMPRESSION: Ulceration/lesion to the left frontotemporal region with a reported history of basal cell carcinoma with anticipated surgical excision. RECOMMENDATIONS: At this point in time, I think simply covering this with a bordered foam dressing to manage drainage and appearance would be most appropriate. We will need to make sure she has appropriate followup with a dermatological surgeon in order to excise the lesion. We will cleanse the wound base today with a dilute hydrogen peroxide solution. The patient has no questions. I appreciate being asked to see her in consultation. <ELECTRONICALLY SIGNED> By: Morris Rodriguez MD 05/14/18 0827 1148 0137 Morris Rodriguez MD /nt
--- NOTE | ~2018-05-10 | H ---
[facility] [place] [address] HISTORY AND PHYSICAL Name: BERNARDO DUPONT Room #: 427-P ADM IN M.R.#: [id number] Admission: 05/10/18 Attend Phys: Napoleon Cullen MD Discharge: Date of : 29 Report #: [id number] THIS REPORT FOR: //name// CC: Napoleon Cullen DATE OF SERVICE: 05/10/2018 HISTORY OF PRESENT ILLNESS: The patient is an 87-year-old female, who was brought to the Emergency Room after having a fall in her assisted living apartment. The patient said that she went to the bathroom and when she was trying to leave the bathroom, she lost her balance and fell. The patient did not have any actual loss of consciousness. The patient did not have any palpitation or nausea or vomiting. The patient knows that she fell on her left side. She hit her head and she is having a lot of headache in addition to pain on the left shoulder and left hip area. PAST MEDICAL HISTORY: Significant for syncopal episode that happened in 07/2017. The patient had a history of anxiety, diverticulosis and diverticulitis, peripheral neuropathy, previous history of C. difficile colitis, depression, hyperlipidemia, chronic back pain and chronic kidney disease in addition to seizure disorder. The patient did not think that she had any seizure. The patient had history of large basal cell carcinoma on the left frontal area that according to the patient has been treated with a medicine to try to shrink it before she goes for surgery. MEDICATIONS: Reviewed. ALLERGIES: CEFUROXIME. SOCIAL HISTORY: The patient is living in assisted living. She denies any history of smoking, alcohol use or drug use. FAMILY HISTORY: Noncontributory. REVIEW OF SYSTEMS: Negative besides what was mentioned above. PHYSICAL EXAMINATION: VITAL SIGNS: On arrival to the hospital showed a temperature of 97.8, pulse 67, respirations 13, blood pressure 163/75 and last blood pressure is 145/55. HEAD AND NECK: Remarkable for some bruising on the frontal area, large basal cell carcinoma on the left frontal area. Otherwise, pupils are equal and reacting to light. NECK: Supple. LUNGS: Clear to auscultation with good air entry bilaterally. CARDIOVASCULAR: S1, S2, without any murmur or gallop. ABDOMEN: Benign. Bowel sounds were positive. [address] [address] HISTORY AND PHYSICAL Name: BERNARDO DUPONT [facility] Room #: 427-P ADM IN M.R.#: [id number] Admission: 05/10/18 Attend Phys: Napoleon Cullen MD Discharge: Date of : 29 Report #: [id number] EXTREMITIES: +2 edema bilaterally. NEUROLOGIC: The patient has obvious pain with any movement of the left shoulder or any movement for the left hip. LABORATORY DATA: The patient's 12-lead EKG on arrival to the hospital showed sinus rhythm with low voltage in precordial leads. CBC showed a white count of 5.8, hemoglobin 10.8, hematocrit 33, platelet count 294, neutrophils are 44%. The patient's urinalysis was basically unremarkable besides specific gravity of more than 1.030. Basic metabolic panel showed a sodium of 140, potassium 4.2, chloride 104, bicarbonate 30, anion gap 6, BUN 21, creatinine 1.2 and troponin less than 0.06. CT scan of the spine without contrast showed extensive multilevel cervical spondylosis without acute cervical spine fracture or subluxation identified. CT of the head showed no evidence of acute intracranial hemorrhage or other acute intracranial abnormalities. Chest x-ray showed subtle patchy right lower lobe atelectasis versus pneumonitis. No consolidating infiltrate, pneumothorax or significant pleural effusion. X-ray of the left humerus showed no acute osseous abnormalities identified. ASSESSMENT: 1. Status post fall with headache in addition to pain on the left shoulder and left hip. 2. Dehydration. 3. Status post fall. 4. Seizure disorder. PLAN: The patient will be admitted to the hospital with the above-mentioned diagnoses. The patient will have an x-ray of her left hip and femur. The patient will resume her home medications. The patient to continue the pain management. We will have physical therapy and occupational therapy to work with the patient. <ELECTRONICALLY SIGNED> By: Napoleon Cullen MD 05/11/18 0703 0737 0830 Napoleon Cullen MD /nt
[~2018-05-10 03:58] MED LIST changes: +FLOMAX0.4 MG PO
[2018-05-10 03:59] VITALS: BP 163/75
[2018-05-10 04:47] LABS: ABSOLUTE NEUTROPHILS 2.4 thou/uL (1.4-8.2); BASOPHILS 1.7 % (0.0-2.0); EOSINOPHILS 6.2 % (0.0-3.0); HEMOGLOBIN 10.8 gm/dL (12.0-15.0); LYMPHOCYTES 39.8 % (24.0-44.0); MCH 28.7 pg (26.0-34.0); MCHC 32.6 g/dL (28.0-37.0); MCV 88.1 fL (80.0-100.0); MONOCYTES 7.9 % (1.0-8.0); PLATELET COUNT 294 thou/uL (150-400); POLYS 44.4 % (36.0-66.0); RBC 3.75 mil/uL (4.20-5.00); RDW 14.2 % (10.5-14.5); WBC 5.4 thou/uL (4.0-11.0)
[2018-05-10 04:52] LABS: ANION GAP 6 mmol/L (7-16); BUN 21 mg/dL (7-18); CALCIUM 8.7 mg/dL (8.5-10.1); CHLORIDE 104 mmol/L (98-107); CO2 30 mmol/L (21-32); CREATININE 1.2 mg/dL (0.6-1.0); GLUCOSE 97 mg/dL (74-106); POTASSIUM 4.2 mmol/L (3.5-5.1); SODIUM 140 mmol/L (136-145)
[2018-05-10 05:00] LABS: URINE BILIRUBIN NEGATIVE (Negative); URINE BLOOD NEGATIVE (Negative); URINE CLARITY SL CLOUDY; URINE COLOR YELLOW; URINE GLUCOSE-RANDOM* NEGATIVE (Negative); URINE KETONES NEGATIVE (Negative); URINE LEUKOCYTES-REFLEX NEGATIVE (Negative); URINE NITRITE-REFLEX NEGATIVE (Negative); URINE PROTEIN (DIPSTICK) NEGATIVE (Negative); URINE SPECIFIC GRAVITY >= 1.030 (1.005-1.035); URINE UROBILINOGEN 0.2 E.U./dl (0.2-1.0)
[2018-05-10 05:01] LABS: TROPONIN-I <0.06 ng/mL (<0.06)
[2018-05-10 06:40] VITALS: BP 134/46
[2018-05-10 06:48] VITALS: BP 146/55
[2018-05-10 07:39] VITALS: BP 128/56
[2018-05-10 16:23] VITALS: BP 107/51
[2018-05-10 20:13] VITALS: BP 140/67
[2018-05-11 04:13] VITALS: BP 161/63
[2018-05-11 05:56] LABS: ABSOLUTE NEUTROPHILS 2.7 thou/uL (1.4-8.2); BASOPHILS 1.3 % (0.0-2.0); EOSINOPHILS 5.2 % (0.0-3.0); HEMATOCRIT 32.5 % (37.0-47.0); HEMOGLOBIN 10.4 gm/dL (12.0-15.0); LYMPHOCYTES 32.7 % (24.0-44.0); MCH 28.2 pg (26.0-34.0); MCV 88.1 fL (80.0-100.0); MONOCYTES 7.7 % (1.0-8.0); PLATELET COUNT 245 thou/uL (150-400); POLYS 53.1 % (36.0-66.0); RBC 3.69 mil/uL (4.20-5.00); RDW 14.1 % (10.5-14.5)
[2018-05-11 06:22] LABS: ALBUMIN 2.7 g/dL (3.4-5.0); CALCIUM 8.4 mg/dL (8.5-10.1); CREATININE 0.9 mg/dL (0.6-1.0); POTASSIUM 3.9 mmol/L (3.5-5.1); TOTAL BILIRUBIN 0.3 mg/dL (<0.1-1.0)
[2018-05-11 07:30] VITALS: BP 137/58
[2018-05-11 17:12] VITALS: BP 129/67
[2018-05-11 19:57] VITALS: BP 131/51
[2018-05-12 03:51] VITALS: BP 132/53
[2018-05-12 09:26] VITALS: BP 158/65
[2018-05-12 16:05] VITALS: BP 139/46
[2018-05-12 19:22] VITALS: BP 118/82
[2018-05-13 05:07] VITALS: BP 168/56
== END 2018-05-13 15:13 | DRG 641 ==
LOC: ER 03:58 → EROBS 06:29 → 4E 07:09
PROVIDERS: Emergency Medicine; Internal Medicine
DX: E86.0 Dehydration (principal); E44.1 Mild protein-calorie malnutrition; N18.3 Chronic kidney disease, stage 3 (moderate); E78.5 Hyperlipidemia, unspecified; Z96.641 Presence of right artificial hip joint; Z96.652 Presence of left artificial knee joint; F03.90 Unspecified dementia, unspecified severity, without behavioral disturbance, psychotic disturbance, mood disturbance, and anxiety; K21.9 Gastro-esophageal reflux disease without esophagitis; J45.909 Unspecified asthma, uncomplicated; K57.90 Diverticulosis of intestine, part unspecified, without perforation or abscess without bleeding; S09.90XA Unspecified injury of head, initial encounter; F41.9 Anxiety disorder, unspecified; F32.9 Major depressive disorder, single episode, unspecified; G62.9 Polyneuropathy, unspecified; G89.29 Other chronic pain; M54.9 Dorsalgia, unspecified; G40.909 Epilepsy, unspecified, not intractable, without status epilepticus; I12.9 Hypertensive chronic kidney disease with stage 1 through stage 4 chronic kidney disease, or unspecified chronic kidney disease; W18.39XA Other fall on same level, initial encounter; L97.529 Non-pressure chronic ulcer of other part of left foot with unspecified severity; Y93.89 Activity, other specified; Y92.031 Bathroom in apartment as the place of occurrence of the external cause; Y99.8 Other external cause status; Z90.49 Acquired absence of other specified parts of digestive tract; Z90.710 Acquired absence of both cervix and uterus; Z98.42 Cataract extraction status, left eye; Z98.41 Cataract extraction status, right eye; Z88.6 Allergy status to analgesic agent; Z88.8 Allergy status to other drugs, medicaments and biological substances; Z79.899 Other long term (current) drug therapy
CPT/HCPCS: 10084